=== PATIENT | female | born 1945 | race Caucasian/White ===

== ENCOUNTER → 2017-07-25 09:50 | Outpatient (CLI) | payer MEDICARE, SELFPAY ==
--- NOTE | 2017-07-25 09:56 | MM_ITS ---
MM Dig screening mamm BI w/CAD CAD Screening COMPARISON: Digital mammograms 06/14/2015 and 07/22/2016 INDICATION: There is a history of breast cancer in patient's mother diagnosed after menopause in patient's sister diagnosed after menopause. There is been previous biopsy left breast. TECHNIQUE: Standard CC and MLO images were obtained. R2 CAD reviewed. FINDINGS: There is a markedly and diffusely dense and heterogenic parenchymal pattern lessening the sensitivity of mammography. Numerous benign-appearing calcification is again seen in each breast. There are 2 large benign-appearing calcination is right breast likely with in calcified fibroadenomas these are stable. There is no new or suspicious lesion in either breast and there are no suspicious microcalcifications. There is arterial calcification in each breast. IMPRESSION: Stable exam with markedly dense parenchymal pattern and no suspicious lesion seen BI-RADS Category: 2 Benign Finding(s) RECOMMENDED FOLLOW-UP: 1YR - 1 YEAR FOLLOW-UP (A letter has been sent to the patient regarding results of the study.)
== END ==
PROVIDERS: PCP Internal Medicine; Visit Provider Internal Medicine
DX: Z12.31 Encounter for screening mammogram for malignant neoplasm of breast (principal)
CPT/HCPCS: 77067

== ENCOUNTER → 2017-12-17 15:08 | Outpatient (CLI) | payer MEDICARE, SELFPAY ==
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
== END ==
PROVIDERS: PCP Internal Medicine; Visit Provider Internal Medicine
DX: M79.605 Pain in left leg (principal); M79.604 Pain in right leg; M79.89 Other specified soft tissue disorders
CPT/HCPCS: 93970

== ENCOUNTER → 2018-02-11 12:51 | Outpatient (POV) | payer MEDICARE, SELFPAY | PROVIDERS: PCP Internal Medicine | DX: Z00.00 Encounter for general adult medical examination without abnormal findings (principal) ==

== ENCOUNTER → 2018-07-15 14:01 | Outpatient (POV) | payer MEDICARE, SELFPAY | DX: Z00.00 Encounter for general adult medical examination without abnormal findings (principal) ==

== ENCOUNTER → 2018-12-30 12:49 | Outpatient (POV) | payer MEDICARE, SELFPAY | DX: Z00.00 Encounter for general adult medical examination without abnormal findings (principal) ==

== ENCOUNTER → 2019-01-20 07:54 | Outpatient (CLI) | payer MEDICARE, SELFPAY ==
--- NOTE | 2019-01-20 07:58 | CA_ITS ---
APPROVED REPORT Cardiology Nurse: ELMER Laterality: Bilateral Study Quality: Good Indications: Dizziness and Vertigo Risk Factors Hypertension: Hyperlipidemia Doppler Spectral Velocity Analysis ECA (R) 81.70/ cm/s ECA (L) 60.50/ cm/s dICA (R) 108.00/31.40 cm/s dICA (L) 83.30/17.30 cm/s Eduardo (R) 71.50/14.90 cm/s Eduardo (L) 80.90/21.40 cm/s pICA (R) 36.10/12.60 cm/s pICA (L) 84.90/22.00 cm/s dCCA (R) 29.90/10.20 cm/s dCCA (L) 46.40/10.20 cm/s pCCA (R) 59.70/12.60 cm/s pCCA (L) 63.60/11.80 cm/s Vert (R) 61.30/ cm/s Vert (L) 47.90/ cm/s ICA/CCA 1.80 ICA/CCA 1.30 Findings Duplex evaluation demonstrates stenosis of the right proximal internal carotid artery <20% with PSV <140 cm/sec, EDV <100 cm/sec, and IC/CC Ratio <4.0.Duplex evaluation demonstrates stenosis of the left proximal internal carotid artery <20% with PSV <140 cm/sec, EDV <100 cm/sec, and IC/CC Ratio <4.0.Antegrade flow seen bilateral vertebral arteries. Conclusion Duplex evaluation demonstrates stenosis of the right proximal internal carotid artery <20% with PSV <140 cm/sec, EDV <100 cm/sec, and IC/CC Ratio <4.0.Duplex evaluation demonstrates stenosis of the left proximal internal carotid artery <20% with PSV <140 cm/sec, EDV <100 cm/sec, and IC/CC Ratio <4.0.Antegrade flow seen bilateral vertebral arteries. Electronically signed by : Bean Vargas MD 01/20/2019 15:56:20
== END ==
PROVIDERS: PCP Internal Medicine; Visit Provider Internal Medicine
DX: R42 Dizziness and giddiness (principal); I10 Essential (primary) hypertension
CPT/HCPCS: 93880

== ENCOUNTER → 2019-01-27 15:07 | Outpatient (CLI) | payer MEDICARE, SELFPAY ==
--- NOTE | 2019-01-27 | XR_ITS ---
PROCEDURE: XR FOOT LT MIN 3V CLINICAL INDICATION: S/P FALL 01-21-19, PAIN LT CHEST,LT HIP, BILAT FEET AND ANKLES Pain following injury COMPARISON: No exams were available for comparison FINDINGS: There is an old fracture versus postsurgical change at the distal aspect of the 1st metatarsal. Suspect prior bunionectomy. There are mild degenerative changes of the midfoot with diffuse vascular calcification . no acute fracture or dislocation. Other findings:None. IMPRESSION: No acute finding Dictated by: Bean Vargas MD 01/27/2019 16:09 Electronically signed by Bean Vargas MD in [place] 01/27/2019 16:09
--- NOTE | 2019-01-27 | XR_ITS ---
PROCEDURE: XR ANKLE LT MIN 3V CLINICAL INDICATION: S/P FALL 01-21-19, PAIN LT CHEST,LT HIP, BILAT FEET AND ANKLES Fall with injury and pain COMPARISON: No exams were available for comparison FINDINGS: Generalized soft tissue swelling. Diffuse vascular calcification. No acute fracture or dislocation. Mild spurring at the calcaneal plantar surface. IMPRESSION: No acute finding Dictated by: Bean Vargas MD 01/27/2019 16:13 Electronically signed by Bean Vargas MD in [place] 01/27/2019 16:13
--- NOTE | 2019-01-27 | XR_ITS ---
PROCEDURE: XR ANKLE RT MIN 3V CLINICAL INDICATION: S/P FALL 01-21-19, PAIN LT CHEST,LT HIP, BILAT FEET AND ANKLES Fall with injury and pain COMPARISON: No exams were available for comparison FINDINGS: Generalized soft tissue swelling greater along the medial aspect. Diffuse vascular calcification. No acute fracture or dislocation IMPRESSION: Soft tissue swelling otherwise negative Dictated by: Bean Vargas MD 01/27/2019 16:14 Electronically signed by Bean Vargas MD in [place] 01/27/2019 16:14
--- NOTE | 2019-01-27 | XR_ITS ---
PROCEDURE: XR RIBS LT 2V CLINICAL INDICATION: S/P FALL 01-21-19, PAIN LT CHEST,LT HIP, BILAT FEET AND ANKLES Left-sided chest pain/rib pain following injury COMPARISON: CXR-PICC CHEST PORTABLE-PICC PLACEMENT from 10/30/2016 XR CHEST 2V from 01/27/2019 FINDINGS: PA and lateral views of the chest show cardiomegaly without failure. No evidence of pneumothorax. Lungs are clear of acute infiltrate. There is a small left pleural effusion with mild blunting of the left CP angle. Nondisplaced fracture is present involving the left 4th 5th and 6th ribs posterior laterally IMPRESSION: Cardiomegaly with small left effusion. Left 4th 5th and 6th rib fractures Dictated by: Bean Vargas MD 01/27/2019 16:05 Electronically signed by Bean Vargas MD in [place] 01/27/2019 16:07
--- NOTE | 2019-01-27 | XR_ITS ---
PROCEDURE: XR HIP LT 2-3V W/PELVIS CLINICAL INDICATION: S/P FALL 01-21-19, PAIN LT CHEST,LT HIP, BILAT FEET AND ANKLES Pelvic pain following injury COMPARISON: PELAP PELVIS AP ONLY from 10/29/2013 FINDINGS: No obvious fracture or dislocation. There are mild osteoarthritic changes of the hips with bony hypertrophy of the greater trochanter. There is generalized vascular calcification. No fracture or dislocation apparent IMPRESSION: Degenerative change, no acute finding Dictated by: Bean Vargas MD 01/27/2019 16:12 Electronically signed by Bean Vargas MD in [place] 01/27/2019 16:12
--- NOTE | 2019-01-27 | XR_ITS ---
PROCEDURE: XR FOOT RT MIN 3V CLINICAL INDICATION: S/P FALL 01-21-19, PAIN LT CHEST,LT HIP, BILAT FEET AND ANKLES Pain following injury COMPARISON: No exams were available for comparison FINDINGS: There are no previous exams made available for comparison Prior bunionectomy of the distal 1st metatarsal with prior fusion of the 1st metatarsal tarsal joint. Osteoarthritic changes are present at the tarsal metatarsal joint and in the midfoot. There is a small calcaneal spur and there is generalized vascular calcification. No obvious fracture. IMPRESSION: Chronic degenerative and postsurgical changes, no acute finding Dictated by: Bean Vargas MD 01/27/2019 16:11 Electronically signed by Bean Vargas MD in [place] 01/27/2019 16:11
== END ==
PROVIDERS: PCP Internal Medicine; Visit Provider Internal Medicine
DX: R07.89 Other chest pain (principal); M25.552 Pain in left hip; M79.672 Pain in left foot; M79.671 Pain in right foot; M25.572 Pain in left ankle and joints of left foot; M25.571 Pain in right ankle and joints of right foot
CPT/HCPCS: 71046; 71100; 73502; 73610; 73630

== ENCOUNTER → 2019-04-26 13:24 | Outpatient (CLI) | payer MEDICARE, SELFPAY ==
--- NOTE | 2019-04-26 13:27 | MR_ITS ---
PROCEDURE: MR LUMBAR SPINE WO CON CLINICAL INDICATION: LOW BACK PAIN Right-sided low back pain COMPARISON: EVAPORATOR/O MRI-L-SPINE W/O from 06/30/2014 TECHNIQUE: Standard multiplanar multiecho sequences are performed without contrast. 3-D MIP and myelographic images are also rendered and reviewed FINDINGS: There is normal alignment. The spinal cord ends at the L1 level. T11-T12: Mild degenerative disc disease. Minimal central disc protrusion T11-T12 without impingement. L1-L2: Mild degenerative disc disease. L2-L3: Minimal facet hypertrophic change with a small amount fluid in the facet joint on the right. L3-L4: Minimal bulging disc with mild facet ligamentum hypertrophy. L4-5: Mild bulging disc with facet ligamentum hypertrophy with moderate bilateral lateral recess narrowing and moderate to severe left foraminal narrowing and moderate right foraminal narrowing. L5-S1: Degenerate disc disease with mild bulging disc along with facet ligamentum hypertrophy with moderate bilateral foraminal narrowing No extruded herniated disc evident. T1 and T2 hyperintensity noted at the T12 and L1 vertebral bodies consistent with lipoma or lipid rich hemangioma IMPRESSION: 1. Mild multilevel degenerative changes with with degenerative disc disease, mild bulging disc, and facet ligamentum hypertrophy. Please see above for detailed description at each level. 2. No extruded herniated disc or bony canal stenosis. Dictated by: Bean Vargas MD 04/27/2019 14:14 Electronically signed by Bean Vargas MD in [place] 04/27/2019 14:14
== END ==
PROVIDERS: PCP Internal Medicine; Visit Provider Internal Medicine
DX: M54.5 Low back pain (principal)
CPT/HCPCS: 72148; 76376

== ENCOUNTER → 2019-05-10 13:57 | Outpatient (POV) | payer MEDICARE, SELFPAY ==
[2019-05-10 14:18] VITALS: BP 147/52; PULSE 55; RESP 18; O2SAT 98; BMI 32.8
--- NOTE | 2019-05-10 15:42 | XR_ITS ---
PROCEDURE: XR SACROILIAC JOINT BI MIN 3V CLINICAL INDICATION: LOW BACK PAIN COMPARISON: No exams were available for comparison FINDINGS: There is generalized mild osteopenia. There is fairly symmetric subchondral sclerotic changes involving both sacroiliac joints somewhat more diffuse on the right side. There are no areas of cortical erosions or destruction. There are pelvic and proximal thigh calcified plaques. Sacral foramina appear to be normal. There is severe loss of disc space height at L5-S1. IMPRESSION: No acute process. Degenerative changes bilateral sacroiliac joints as discussed. Osteopenia. L5-S1 chronic intervertebral osteochondrosis. Dictated by: Raul Way 05/10/2019 17:31 Electronically signed by Raul Way in [place] 05/10/2019 17:31
--- NOTE | 2019-05-12 13:07 | HMH.PMCON ---
Assessment and Plan (1) Degenerative disc disease Current visit: Yes Status: Chronic Qualifiers: Spinal region: lumbar Qualified Code(s): M51.36 - Other intervertebral disc degeneration, lumbar region Category: Medical (2) Facet arthropathy Current visit: Yes Status: Chronic Category: Medical Code(s): M47.819 - Spondylosis without myelopathy or radiculopathy, site unspecified (3) Spinal stenosis Current visit: Yes Status: Chronic Category: Medical Code(s): M48.00 - Spinal stenosis, site unspecified (4) Sacroiliitis Current visit: Yes Status: Chronic Category: Medical Code(s): M46.1 - Sacroiliitis, not elsewhere classified - Assessment and plan all Dx Assessment and Plan for all problems:: We will get some imaging of her bilateral SI joints. We will set her up for bilateral SI joint injections. I will follow-up with her after this reassess her symptoms at that time she is been instructed to call the office if she has any issues prior to her next appointment. Dr. Block has reviewed this note and agrees with this plan of care. This note was dictated using voice recognition software and may contain errors or omissions HPI - Data of Consult Consult date: 05/10/19 Requesting Physician: Ayanna Fields APRN Primary Care Provider: Andrea Benton - Consult Narrative Reason for consult: Back pain History of present illness: Ms. Mckinnon is a 73 year old female who presents today for consultation in regards to her back pain. Patient has been going to pain management in [facility] getting epidural injections along with ablations and facet joint injections. She is also on tramadol and gabapentin. She states that that is somewhat beneficial. Patient would like to start doing her injective therapy at this point in [place]. Patient states that she feels that her pain is actually lower than the pain that the facet joint injections and epidurals were treating. Patient does have a positive Dann test SI joint compression test and Souleymane's test bilaterally. We will get some diagnostic imaging of her bilateral SI joints. I do believe that would be beneficial for a baseline. Patient has not had SI joint injections in the past. She rates her pain today a 4 out of 10. She is tried and failed multiple injections, RFA's, physical therapy CC: Ayanna Fields APRN [facility] History I have reviewed the patient's past medical history: Yes Medical History: Reports:: Diabetes Mellitus Type 2, Palpitations Denies:: Cancer, Diabetes Mellitus Type 1, MRSA *Have you ever received a pneumonia vaccine?: Yes *Have you received a flu vaccine this season?: Yes Other Medical History: Reports: Arthritis Other Surgeries: Yes: Hernia Repair Amputation: No Fractures: No - *Social History Smoking Status: Never smoker Alcohol Intake: never *Occupational Status:: other Housing: house *Travel in the last 8 weeks: None Family Hx:: Unable to obtain Review of Systems - Review of Systems ROS General: no recent weight change, no fever, no sleep disturbances Respiratory: no cough, no shortness of air, no recurring pulmonary infections Cardiovascular/Peripheral Vascular: No chest pain, No palpitations, no edema, no shortness of breath. Gastrointestinal: no new onset incontinence, normal bowel movements reported Genitourinary: no new onset incontinence Musculoskeletal: Back pain, leg pain Psychiatric: normal mood/ affect, Neurological: [denies new onset weakness in extremities], [denies new onset balance issues] Meds Home Medications Medication Instructions Recorded Confirmed Type Alendronate Sodium 35 mg PO DAILY 05/10/19 05/10/19 History Donepezil HCl [Donepezil ODT 5mg] 5 mg PO DAILY 05/10/19 05/10/19 History Gabapentin [Gabapentin 100mg Cap] 100 mg PO BID 05/10/19 05/10/19 History Sertraline HCl 25 mg PO DAILY 05/10/19 05/10/19 History Tramadol HCl [Tramadol 50mg 50 mg PO DAILY 1
== END ==
PROVIDERS: PCP Internal Medicine; Visit Provider Clinical Nurse Specialist Family Health
DX: M51.36 Other intervertebral disc degeneration, lumbar region (principal); M47.819 Spondylosis without myelopathy or radiculopathy, site unspecified; M48.00 Spinal stenosis, site unspecified; M46.1 Sacroiliitis, not elsewhere classified
CPT/HCPCS: 72202; 99202

== ENCOUNTER → 2019-06-15 11:13 | Outpatient (POV) | payer MEDICARE, SELFPAY ==
[2019-06-15 11:44] VITALS: BP 162/61; PULSE 52; RESP 18; O2SAT 99; BMI 31.4
--- NOTE | 2019-06-15 12:36 | HMH.PAINSOAP ---
[facility] Pain Management SOAP Note Subjective:: Patient is a pleasant 73-year-old white female who presents today for follow-up after SI joint injections. Patient overall doing extremely well she denies any pain today. She is had over 90% relief of her symptomology. Patient is interested in repeating this and a possible ablation in the future. Patient and I also briefly discussed neuro stimulation however she is unsure if she would likes anything implanted in her skin. I did give her information in regards to this. ROS General: no recent weight change, no fever, no sleep disturbances Respiratory: no cough, no shortness of air, no recurring pulmonary infections Cardiovascular/Peripheral Vascular: No chest pain, No palpitations, no edema, no shortness of breath. Gastrointestinal: no new onset incontinence, normal bowel movements reported Genitourinary: no new onset incontinence Musculoskeletal: Back pain, SI joint pain Psychiatric: normal mood/ affect Neurological: [denies new onset weakness in extremities], [denies new onset balance issues] Objective:: Physical Exam General: Alert and oriented x3, no acute distress, pleasant and cooperative, [on room air] Lungs: Resps E/U, Symmetrical chest expansion, Eyes: PERRL Musculoskeletal: Flexion and extension of lumbar spine somewhat guarded secondary to pain, deep tendon reflexes normal, strength in upper and lower extremities [5/5], abnormal gait noted, positive Dann test positive SI joint compression test and positive Souleymane's test bilaterally Neurological: speech clear, implementation engineer equal, no gross sensory deficits Assessment:: Sacroiliitis Plan:: We will repeat her bilateral SI joint injections given the efficacy of the last when she may be a candidate for a neurotomy. I will follow-up with the patient after this reassess her symptoms at that time she is been instructed to call the office if she has any issues prior to her next appointment. Dr. Block has reviewed this note and agrees with this plan of care. This note was dictated using voice recognition software and may contain errors or omissions [facility] History I have reviewed the patient's past medical history: Yes Medical History: Reports:: Diabetes Mellitus Type 2, Palpitations Denies:: Cancer, Diabetes Mellitus Type 1, MRSA, Seizures *Have you ever received a pneumonia vaccine?: Yes *Have you received a flu vaccine this season?: Yes Other Medical History: Reports: Arthritis Other Surgeries: Yes: Hernia Repair Amputation: No Fractures: No - *Social History Smoking Status: Never smoker Alcohol Intake: never *Occupational Status:: other Housing: house *Travel in the last 8 weeks: None Family Hx:: Unable to obtain
== END ==
PROVIDERS: PCP Internal Medicine; Visit Provider Clinical Nurse Specialist Family Health
DX: M46.1 Sacroiliitis, not elsewhere classified (principal); M19.90 Unspecified osteoarthritis, unspecified site; E11.9 Type 2 diabetes mellitus without complications; R00.2 Palpitations
CPT/HCPCS: 99212

== ENCOUNTER → 2019-07-07 12:46 | Outpatient (POV) | payer MEDICARE, SELFPAY | PROVIDERS: PCP Family Medicine | DX: Z00.00 Encounter for general adult medical examination without abnormal findings (principal) ==

== ENCOUNTER → 2019-07-12 14:52 | Outpatient (POV) | payer MEDICARE, SELFPAY ==
[2019-07-12 15:23] VITALS: BP 134/57; PULSE 52; RESP 18; O2SAT 98; BMI 31.4
--- NOTE | 2019-07-13 09:10 | HMH.PAINSOAP ---
[facility] Pain Management SOAP Note Subjective:: Patient is a pleasant 73-year-old white female who presents today for follow-up after bilateral SI joint injections. Patient states she is doing well she has no pain today. Overall doing well and more active. Patient would like to follow-up in a few months just to ensure she still doing all right. ROS General: no recent weight change, no fever, no sleep disturbances Respiratory: no cough, no shortness of air, no recurring pulmonary infections Cardiovascular/Peripheral Vascular: No chest pain, No palpitations, no edema, no shortness of breath. Gastrointestinal: no new onset incontinence, normal bowel movements reported Genitourinary: no new onset incontinence Musculoskeletal: Back and hip pain at times Psychiatric: normal mood/ affect, Neurological: [denies new onset weakness in extremities], [denies new onset balance issues] Objective:: Physical Exam General: Alert and oriented x3, no acute distress, pleasant and cooperative, [on room air] Lungs: Resps E/U, Symmetrical chest expansion, Eyes: PERRL Musculoskeletal: Flexion and extension of lumbar spine somewhat guarded secondary to pain, deep tendon reflexes normal, strength in upper and lower extremities [5/5], [abnormal gait noted] Neurological: speech clear, electric serviceman equal, no gross sensory deficits Assessment:: Degenerative disc disease lumbar spine lumbar radiculopathy along with sacroiliitis Plan:: We will follow-up with the patient in 2 months reassess her symptoms at that time she has been instructed to call the office if she has any issues prior to her next appointment. Dr. Block has reviewed this note and agrees with this plan of care. This note was dictated using voice recognition software and may contain errors or omissions [facility] History I have reviewed the patient's past medical history: Yes Medical History: Reports:: Atrial Fibrillation, Diabetes Mellitus Type 2, Palpitations Denies:: Cancer, Diabetes Mellitus Type 1, MRSA, Seizures *Have you ever received a pneumonia vaccine?: Yes *Have you received a flu vaccine this season?: Yes Other Medical History: Reports: Arthritis. Denies: Blood Transfusion Reaction Other Surgeries: Yes: Hernia Repair Amputation: No Fractures: No - *Social History Smoking Status: Never smoker Alcohol Intake: never *Occupational Status:: other Housing: house *Travel in the last 8 weeks: None Family Hx:: Unable to obtain
== END ==
PROVIDERS: PCP Internal Medicine; Visit Provider Clinical Nurse Specialist Family Health
DX: M51.16 Intervertebral disc disorders with radiculopathy, lumbar region (principal); M46.1 Sacroiliitis, not elsewhere classified
CPT/HCPCS: 99212

== ENCOUNTER → 2019-08-25 08:27 | Outpatient (CLI) | payer MEDICARE, SELFPAY ==
--- NOTE | 2019-08-25 08:28 | MR_ITS ---
PROCEDURE: MR HEAD/BRAIN WO/W CON CLINICAL INDICATION: intracranial circulation Ringing in the ears, dizziness, increasing dizziness COMPARISON: No exams were available for comparison TECHNIQUE: Routine multiplanar multi echo sequences are performed without and with gadolinium enhancement. FINDINGS: No midline shift, mass effect, intracranial hemorrhage, or hydrocephalus is evident. There is generalized atrophy with scattered periventricular subcortical and basal ganglia T2 hyperintensities consistent with ischemic gliotic change from microvascular disease. There is no evidence of acute infarction. No enhancing lesions are evident. The cerebellopontine angles, cerebellum, and brainstem are unremarkable. The pituitary and optic chiasm have an unremarkable appearance. Unremarkable craniocervical junction. No mastoid effusion or sinus air-fluid level. IMPRESSION: 1. Generalized atrophy with periventricular ischemic gliotic change. 2. No acute intracranial findings. Dictated by: Bean Vargas MD 08/26/2019 11:48 Electronically signed by Bean Vargas MD in [place] 08/26/2019 11:48
--- NOTE | 2019-08-25 08:28 | MR_ITS ---
PROCEDURE: MR ANGIO HEAD WO CON CLINICAL INDICATION: intracranial circulation Ringing in ears with dizziness which is increasing, increasing falls COMPARISON: No exams were available for comparison TECHNIQUE: 3D [id number] images performed without contrast with MIP multi slab reformats FINDINGS: There is a question of a small anterior communicating artery aneurysm measuring approximately 2 mm. This could be due to ectasias of the anterior communicating artery with overlap. CT angiogram may provide further evaluation no other aneurysms are evident. No major intracranial occlusive process or arteriovenous malformation evident. Single-shot venogram shows no evidence of superior sagittal sinus thrombosis. 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 Consider CT angiogram for confirmation. Dictated by: Bean Vargas MD 08/26/2019 11:52 Electronically signed by Bean Vargas MD in [place] 08/26/2019 11:52
== END ==
PROVIDERS: PCP Internal Medicine; Visit Provider Specialist
DX: G47.33 Obstructive sleep apnea (adult) (pediatric) (principal); H02.403 Unspecified ptosis of bilateral eyelids; H53.2 Diplopia; H93.19 Tinnitus, unspecified ear; R42 Dizziness and giddiness; R53.83 Other fatigue
CPT/HCPCS: 70544; 70553; A9576

== ENCOUNTER → 2019-09-06 08:26 | Outpatient (CLI) | payer MEDICARE, SELFPAY ==
[2019-09-06 08:52] LABS: Anion Gap 9.6 mEq/L (5-15); Blood Urea Nitrogen 38 mg/dl (7-17); Calcium 9.8 mg/dl (8.4-10.2); Carbon Dioxide 29 mmol/L (22.0-30.0); Chloride 107 mmol/L (98-107); Estimated Glomerular Filt Rate 23 ml/min (>60); GFR (African American) 28 ML/MIN (>60); Glucose 70 mg/dl (74-100); Potassium 4.6 mmoL/L (3.5-5.1); Sodium 141 mmol/L (136-145)
== END ==
PROVIDERS: PCP Internal Medicine; Visit Provider Specialist
DX: I67.1 Cerebral aneurysm, nonruptured (principal); I99.8 Other disorder of circulatory system; R42 Dizziness and giddiness
CPT/HCPCS: 36415; 80048

== ENCOUNTER → 2019-09-06 13:30 | Outpatient (POV) | payer MEDICARE, SELFPAY ==
[2019-09-06 13:49] VITALS: BP 170/70; PULSE 50; RESP 18; TEMP 36.6; O2SAT 98; BMI 32.5
--- NOTE | 2019-09-06 13:55 | HMH.PAINSOAP ---
[facility] Pain Management SOAP Note Subjective:: Patient is a pleasant 74-year-old white female who presents today for follow-up. Patient is doing extremely well after bilateral SI joint injections. She rates her pain a 0 out of 10 today however she states that with activity her pain begins to return. She does have a positive Gypsy's test [place]'s test and [place]'s test bilaterally. She would like to move forward with bilateral SI joint injections. ROS General: no recent weight change, no fever, no sleep disturbances Respiratory: no cough, no shortness of air, no recurring pulmonary infections Cardiovascular/Peripheral Vascular: No chest pain, No palpitations, no edema, no shortness of breath. Gastrointestinal: no new onset incontinence, normal bowel movements reported Genitourinary: no new onset incontinence Musculoskeletal: SI joint pain Psychiatric: normal mood/ affect, Neurological: [denies new onset weakness in extremities], [denies new onset balance issues] Objective:: Physical Exam General: Alert and oriented x3, no acute distress, pleasant and cooperative, [on room air] Lungs: Resps E/U, Symmetrical chest expansion, Eyes: PERRL Musculoskeletal: Flexion and extension of lumbar spine somewhat guarded secondary to pain, deep tendon reflexes normal, strength in upper and lower extremities [5/5], [abnormal gait noted] Neurological: speech clear, field reimbursement manager equal, no gross sensory deficits Assessment:: Sacroiliitis Plan:: We will move forward with bilateral SI joint injections given the efficacy of this in the past I do believe it would benefit her. She is been instructed to call the office if she has any issues prior to her next appointment. We specifically discussed risk factors for Covid-19 including age, heart or lung disease, diabetes, immunosuppression and travel. We also discussed that NSAIDs may worsen Covid-19 infection symptoms and that they should not be used to treat Covid-19 symptoms. Patient was also informed that corticosteroids in any form oral or injectable will decrease immune response and may increase risk of Covid-[address] Block has reviewed this patient's chart and this note and agrees with plan of care. Patient has been instructed to call the office if they have any issues prior to the next appointment. [facility] History I have reviewed the patient's past medical history: Yes Medical History: Reports:: Asthma, Atrial Fibrillation, Diabetes Mellitus Type 2, Gastroesophageal Reflux Disease(GERD), Hiatal Hernia, Hypertension, Palpitations Denies:: Cancer, Diabetes Mellitus Type 1, MRSA, Seizures *Have you ever received a pneumonia vaccine?: Yes *Have you received a flu vaccine this season?: Yes Other Medical History: Reports: Arthritis, Cataracts, Other. Denies: Blood Transfusion Reaction Other Surgeries: Yes: Hernia Repair, Other Amputation: No Fractures: No - *Social History Smoking Status: Never smoker Alcohol Intake: never *Occupational Status:: other Housing: house *Travel in the last 8 weeks: None Family Hx:: Unable to obtain
== END ==
PROVIDERS: PCP Internal Medicine; Visit Provider Clinical Nurse Specialist Family Health
DX: M46.1 Sacroiliitis, not elsewhere classified (principal)
CPT/HCPCS: 36415; 80048; 99212

== ENCOUNTER 2019-10-08 13:17 | Day surgery (SDC) | payer MEDICARE, SELFPAY ==
[2019-10-08 13:23] VITALS: BP 177/68; PULSE 56; RESP 18; TEMP 36.5; O2SAT 95; BMI 32.8
--- NOTE | 2019-10-08 13:37 | HMH.PMPROC ---
- Procedure Date: 10/08/19 Time: 13:37 Anesthesiologist:: Jonn Block MD Complications:: None Pre-procedure Diagnosis:: Sacroiliitis Post-procedure Diagnosis:: Same Indications for Procedure:: This patient is a pleasant 74-year-old white female who we are treating for bilateral hip pain. She has pain over both SI joints. She is tender over both SI joints. She has a positive SI joint compression test. She has a positive Gypsy's test bilaterally. She has positive Dann test bilaterally. We will do bilateral SI joint injections today to see if this will help with her pain symptoms. Procedure Details:: B/L SI joint injection under fluoroscopy Informed consent was obtained and the risks and benefits of the procedure was explained to the patient. The patient was taken to the procedure room and placed prone on the procedure table. The patient was prepped using ChloraPrep. The skin and subcutaneous tissues overlying the SI joints were anesthetized using lidocaine. I placed a 22-gauge needle first in the left SI joint and second in the right SI joint. Needle placement was confirmed with dye. After this we injected 5 mL bupivacaine 0.25% and Depo-Medrol 40 mg into each SI joint. Patient tolerated the procedure well with no complication. Plan and Disposition:: We will follow-up with her in 2 weeks. Will reevaluate symptoms at that time.
[2019-10-08 13:40] VITALS: BP 152/78; PULSE 84; RESP 18; O2SAT 98
[2019-10-08 13:41] VITALS: BP 148/89; PULSE 89; RESP 18; O2SAT 99
[2019-10-08 13:54] VITALS: BP 174/54; PULSE 52; RESP 20; O2SAT 95
== END 2019-10-08 13:55 | disposition home or self-care (01) ==
LOC: SC.PAINP 13:18
PROVIDERS: PCP Internal Medicine; Visit Provider Anesthesiology
DX: M46.1 Sacroiliitis, not elsewhere classified (principal); I10 Essential (primary) hypertension; J45.909 Unspecified asthma, uncomplicated; E11.9 Type 2 diabetes mellitus without complications; I48.91 Unspecified atrial fibrillation; K21.9 Gastro-esophageal reflux disease without esophagitis; M19.90 Unspecified osteoarthritis, unspecified site
CPT/HCPCS: 27096; G0260; J1030; Q9966

== ENCOUNTER → 2019-10-25 13:56 | Outpatient (POV) | payer MEDICARE, SELFPAY ==
[2019-10-25 14:33] VITALS: BP 149/58; PULSE 60; RESP 18; O2SAT 99; BMI 32.4
--- NOTE | 2019-10-25 14:39 | HMH.PAINSOAP ---
[facility] Pain Management SOAP Note Subjective:: Pleasant 74-year-old white female who presents today for follow-up after bilateral SI joint injection. Patient states it helped her symptoms by 90% she rates her pain a 0 out of 10 today. Patient gets several months relief with her injections. We discussed potential RFA of the SI joint or corner lock procedure. She would like to repeat the injection she is having some health concerns at this time is having test run. ROS General: no recent weight change, no fever, no sleep disturbances Respiratory: no cough, no shortness of air, no recurring pulmonary infections Cardiovascular/Peripheral Vascular: No chest pain, No palpitations, no edema, no shortness of breath. Gastrointestinal: no new onset incontinence, normal bowel movements reported Genitourinary: no new onset incontinence Musculoskeletal: SI joint pain Psychiatric: normal mood/ affect Neurological: [denies new onset weakness in extremities], [denies new onset balance issues] Objective:: Physical Exam General: Alert and oriented x3, no acute distress, pleasant and cooperative, [on room air] Lungs: Resps E/U, Symmetrical chest expansion, Eyes: PERRL Musculoskeletal: Flexion and extension of lumbar spine somewhat guarded secondary to pain, deep tendon reflexes normal, strength in upper and lower extremities [5/5], [abnormal gait noted] Neurological: speech clear, housekeeping assistant equal, no gross sensory deficits Assessment:: Sacroiliitis Plan:: We will schedule bilateral SI joint injections with the patient in a month. She has been instructed to call the office if she has any issues prior to her next appointment. Patient and I also discussed a RFA of her SI joints or potentially a coronary lock procedure. We will follow-up with her after this reassess her symptoms at that time she has been instructed call the office if she has any issues prior to her next appointment. Dr. Block has reviewed this note and agrees with this plan of care. This note was dictated using voice recognition software and may contain errors or omissions [facility] History I have reviewed the patient's past medical history: Yes Medical History: Reports:: Asthma, Atrial Fibrillation, Diabetes Mellitus Type 1, Diabetes Mellitus Type 2, Gastroesophageal Reflux Disease(GERD), Hiatal Hernia, Hypertension, Palpitations Denies:: Cancer, MRSA, Seizures *Have you ever received a pneumonia vaccine?: Yes *Have you received a flu vaccine this season?: Yes Other Medical History: Reports: Anemia, Arthritis, Cataracts, Other. Denies: Blood Transfusion Reaction Other Surgeries: Yes: Hernia Repair, Other Amputation: No Fractures: No - *Social History Smoking Status: Never smoker Alcohol Intake: never *Occupational Status:: other Housing: house *Travel in the last 8 weeks: None Family Hx:: Unable to obtain
== END ==
PROVIDERS: PCP Internal Medicine; Visit Provider Clinical Nurse Specialist Family Health
DX: Z09 Encounter for follow-up examination after completed treatment for conditions other than malignant neoplasm (principal); M46.1 Sacroiliitis, not elsewhere classified
CPT/HCPCS: 99212

== ENCOUNTER → 2019-10-29 08:09 | Outpatient (CLI) | payer MEDICARE, SELFPAY ==
--- NOTE | 2019-10-29 08:14 | US_ITS ---
PROCEDURE: US KIDNEY CLINICAL INDICATION: Chronic kidney disease COMPARISON: No exams were available for comparison FINDINGS: The right kidney is [id number]. No hydronephrosis, or renal mass or perinephric fluid collection is evident. The left kidney is [id number]. No hydronephrosis, or renal mass or perinephric fluid collection is evident. There is mild bilateral renal cortical thinning IMPRESSION: Mild cortical thinning otherwise unremarkable bilateral renal ultrasound Dictated by: Bean Vargas MD 10/29/2019 16:39 Electronically signed by Bean Vargas MD in [place] 10/29/2019 16:39
--- NOTE | 2019-10-29 08:14 | US_ITS ---
PROCEDURE: US URINARY BLADDER CLINICAL INDICATION: ELEVATED KIDNEY FUNCTION,CKD COMPARISON: No exams were available for comparison FINDINGS: Urinary bladder has an unremarkable appearance. Ureteral jets are noted as expected. Full bladder volume is approximately 160 mL. Postvoid volume calculated to be 22 mL. IMPRESSION: Unremarkable appearing urinary bladder with mild postvoid residual of 22 mL Dictated by: Bean Vargas MD 10/29/2019 16:40 Electronically signed by Bean Vargas MD in [place] 10/29/2019 16:40
== END ==
PROVIDERS: PCP Internal Medicine; Visit Provider Internal Medicine
DX: R94.4 Abnormal results of kidney function studies (principal); N18.9 Chronic kidney disease, unspecified
CPT/HCPCS: 76770; 76857

== ENCOUNTER → 2019-11-03 14:28 | Outpatient (CLI) | payer MEDICARE, SELFPAY ==
[2019-11-03 21:35] LABS: Collection Time,Urine 24 hours
[2019-11-03 21:36] LABS: Creatinine 24 Hour,Urine 725 mg/24hr (630-2500); Creatinine Clearance Urine 28.9 mL/min (25-115); Creatinine,Urine Random 50 mg/dL (Not Estab.); Patient Height,Urine 60 inches; Patient Weight,Urine 156 lbs; Total Volume,Urine 1450 mL (250-2400)
[2019-11-05 15:10] LABS: Total Protein 24 Hour,Urine 174 mg/24 hr (40-90); Total Volume,Urine 1450 mL (250-2400)
== END ==
PROVIDERS: Visit Provider Internal Medicine
DX: R94.4 Abnormal results of kidney function studies (principal)
CPT/HCPCS: 82570; 82575; 84155; 84156; 84166

== ENCOUNTER 2019-11-26 11:35 | Day surgery (SDC) | payer MEDICARE, SELFPAY ==
[2019-11-26 11:47] VITALS: BP 196/69; PULSE 53; RESP 18; TEMP 36.4; O2SAT 97; BMI 31.8
--- NOTE | 2019-11-26 12:09 | HMH.PMPROC ---
- Procedure Date: 11/26/19 Time: 12:10 Anesthesiologist:: Jonn Block MD Complications:: None Pre-procedure Diagnosis:: Sacroiliitis Post-procedure Diagnosis:: Same Indications for Procedure:: This patient is a pleasant 74-year-old white female who we are treating for bilateral hip pain. She is tender over both SI joints. She has positive SI joint compression test bilaterally. She has a positive Gypsy's test bilaterally. She has a positive Dann test bilaterally. She did well with previous bilateral SI joint injections with 90% relief in her pain symptoms for several weeks. Her pain is now starting to return. We will do repeat bilateral SI joint injections under fluoroscopy today. Procedure Details:: B/L SI joint injection under fluoroscopy Informed consent was obtained and the risks and benefits of the procedure was explained to the patient. The patient was taken to the procedure room and placed prone on the procedure table. The patient was prepped using ChloraPrep. The skin and subcutaneous tissues overlying the SI joints were anesthetized using lidocaine. I placed a 22-gauge needle first in the left SI joint and second in the right SI joint. Needle placement was confirmed with dye. After this we injected 5 mL bupivacaine 0.25% and Depo-Medrol 40 mg into each SI joint. Patient tolerated the procedure well with no complication. Plan and Disposition:: Follow-up with her and 2 weeks. Will reevaluate symptoms at that time. Because of health concerns she wants to hold off on the SI joint stabilization procedure.
[2019-11-26 12:17] VITALS: BP 125/85; BP 128/88; PULSE 85; PULSE 89; RESP 18; O2SAT 98
[2019-11-26 12:30] VITALS: BP 176/66; PULSE 50; RESP 18; O2SAT 95
== END 2019-11-26 12:31 | disposition home or self-care (01) ==
LOC: SC.PAINP 11:37
PROVIDERS: PCP Internal Medicine; Visit Provider Anesthesiology
DX: M46.1 Sacroiliitis, not elsewhere classified (principal); I10 Essential (primary) hypertension; I48.91 Unspecified atrial fibrillation; J45.909 Unspecified asthma, uncomplicated; N28.9 Disorder of kidney and ureter, unspecified; D64.9 Anemia, unspecified; M47.816 Spondylosis without myelopathy or radiculopathy, lumbar region; E11.9 Type 2 diabetes mellitus without complications; Z79.4 Long term (current) use of insulin; Z79.51 Long term (current) use of inhaled steroids; Z79.899 Other long term (current) drug therapy; F41.9 Anxiety disorder, unspecified
CPT/HCPCS: 27096; G0260; J1030; Q9966

== ENCOUNTER → 2019-11-29 08:41 | Outpatient (CLI) | payer MEDICARE, SELFPAY ==
--- NOTE | 2019-11-29 08:42 | MR_ITS ---
PROCEDURE: MR ANGIO HEAD WO CON CLINICAL INDICATION: eval for aneurysm,radiologist recommended Tinnitus in ears. Dizziness and blurred vision. Abnormal MRA 09/04/2019 Possible aneurysm the anterior communicating artery COMPARISON: MR ANGIO HEAD WO CON from 08/25/2019 TECHNIQUE: Routine multiplanar multi echo sequences are performed without gadolinium enhancement. FINDINGS: The previously noted protrusion in the region of the anterior communicating artery is less prominent on today's exam. There was a mild degree of motion artifact on that study which may have resulted in the appearance of a small NEYDA aneurysm. Today's study does not have any significant motion. There is no evidence of aneurysm, AVM, or other intracranial arterial anomaly. Static single-shot MRV is unremarkable. IMPRESSION: Negative MRA of the brain. No evidence of anterior communicating artery aneurysm Dictated by: Bean Vargas MD 11/30/2019 09:37 Electronically signed by Bean Vargas MD in [place] 11/30/2019 09:37
== END ==
PROVIDERS: PCP Internal Medicine; Visit Provider Specialist
DX: N18.9 Chronic kidney disease, unspecified (principal); R42 Dizziness and giddiness; R90.89 Other abnormal findings on diagnostic imaging of central nervous system
CPT/HCPCS: 70544

== ENCOUNTER → 2019-12-16 11:08 | Outpatient (POV) | payer MEDICARE, SELFPAY ==
[2019-12-16 11:55] VITALS: BP 173/77; PULSE 51; RESP 18; TEMP 36.8; O2SAT 98; BMI 31.6
--- NOTE | 2019-12-16 12:23 | HMH.PAINSOAP ---
[facility] Pain Management SOAP Note Subjective:: Patient is a 74-year-old white female who presents today for follow-up. She has been treated for chronic sacroiliitis. She recently underwent bilateral SI joint injections and got approximately 90% relief. She has had these injections in the past and has done well. She does report that she recently was told she had a possible aneurysm. She is following up with her provider with this. She also says that after having an MRA she now has some renal insufficiency. She is now following up with her urologist for this. Patient says that she would like to postpone any further injective therapy at this time due to her increased blood sugars and renal insufficiency. She and I did discuss possible SI stabilization procedure today. She was given educational information. She does rate her pain a 0 out of 10 today. Review of Systems General: No recent weight changes, no fever, no sleep disturbances Respiratory: No cough, no shortness of air, no recurring pulmonary infections Cardiovascular/peripheral vascular: No chest pain, no palpitations, no edema, no shortness of breath Gastrointestinal: No new onset incontinence, normal bowel movements reported Genitourinary: No new onset incontinence Musculoskeletal: Intermittent low back pain with radiation into bilateral buttocks Psychiatric: Normal mood/affect Neurological: [Denies weakness in extremities], [denies balance issues] Objective:: Physical exam General: Alert and oriented x3, no acute distress, pleasant and cooperative, [on room air] Lungs: Respirations even and unlabored, symmetrical chest expansion Eyes: PERRL Musculoskeletal: Flexion and extension of bar spine somewhat guarded secondary to pain, deep tendon reflexes normal, strength in upper and lower extremities [5/5], [abnormal gait noted], positive [place]'s test, positive Gypsy's test, positive distraction test Neurological: Speech clear, interior design project manager equal, no gross sensory deficit Assessment:: Low back pain, chronic sacroiliitis Plan:: Patient I had a long discussion concerning the SI stabilization procedure. She would like to follow-up with us in a month to discuss a further plan of care. She would like to also have her with her at the next visit so that we can discuss the SI stabilization. She will call the clinic if she has any concerns before next appointment. The patient and I specifically discussed risk factors for COVID19. These risks include, but are not limited to age greater than 60, heart or lung disease, diabetes, immunosuppression, and travel. We also discussed NSAIDs may worsen COVID19 infection or symptoms. Patient should not use NSAIDs to treat COVID19 signs or symptoms. Patient was also informed that any type of corticosteroid of any form (oral or injection) will decrease the patient's immune system response and may increase the likelihood of COVID19 infection [address] symptoms[address] Dr. Block has reviewed this note and agrees with this plan of care. This note was dictated using voice recognition software and make contain errors or omissions. [facility] History I have reviewed the patient's past medical history: Yes Medical History: Reports:: Anxiety, Asthma, Atrial Fibrillation, Diabetes Mellitus Type 1, Diabetes Mellitus Type 2, Gastroesophageal Reflux Disease(GERD), Hiatal Hernia, Hypertension, Palpitations Denies:: Cancer, MRSA, Seizures *Have you ever received a pneumonia vaccine?: Yes *Have you received a flu vaccine this season?: Yes Other Medical History: Reports: Anemia, Arthritis, Cataracts, Other. Denies: Blood Transfusion Reaction Other Surgeries: Yes: Hernia Repair, Other Amputation: No Fractures: No - *Social History Smoking Status: Never smoker Alcohol Intake: never *Occupational Status:: other Housing: house Household Members: spouse *Travel in the last 8 weeks: None - Psychiatric History Pschychiatric History:: Reports:: Anxiety Family Hx:: U
== END ==
PROVIDERS: Visit Provider Clinical Nurse Specialist Family Health
DX: M54.5 Low back pain (principal); M46.1 Sacroiliitis, not elsewhere classified
CPT/HCPCS: 99212

== ENCOUNTER → 2019-12-20 14:07 | Outpatient (CLI) | payer MEDICARE, SELFPAY ==
[2019-12-20 14:11] LABS: Microscopic, Urine URINE MICROSCOPIC (MICROSCOPIC)
[2019-12-20 14:35] LABS: Basophils # 0.1 K/mm3 (0-0.2); Basophils % 0.6 % (0.1-2.0); Eosinophils # 0.4 K/mm3 (0.0-0.4); Eosinophils % 3.6 % (0.1-12.0); Hematocrit 38.1 % (37.0-47.0); Hemoglobin 12.1 g/dL (12.2-16.2); Lymphocytes # 1.4 K/mm3 (0.7-4.5); Lymphocytes % 14.3 % (10-50); Mean Corpuscular HGB Conc 31.8 g/dL (31.8-35.4); Mean Corpuscular Hemoglobin 34.2 pg (27.0-31.2); Mean Corpuscular Volume 107.5 fl (81-99); Mean Platelet Volume 9.4 fl (7.4-10.4); Monocytes # 0.4 K/mm3 (0.1-1.0); Monocytes % 3.9 % (1.7-9.3); Neutrophils # 7.6 K/mm3 (1.8-7.8); Neutrophils % 77.6 % (37.0-80.0); Platelet Count 202 K/mm3 (142-424); Red Blood Count 3.54 M/mm3 (4.20-5.40); Red Cell Distribution Width 16.6 % (11.5-17.5); White Blood Count 9.8 K/mm3 (4.8-10.8)
[2019-12-20 14:37] LABS: Appearance,Urine CLEAR (Clear); Bilirubin,Urine Negative (Negative); Blood, Urine Negative (Negative); Color,Urine YELLOW (Yellow); Glucose,Urine (UA) Negative (Negative); Ketones,Urine Negative (Negative); Leukocyte Esterase,Urine 2+ (Negative); Nitrate,Urine Negative (Negative); PH,Urine 6.5 (5.0-8.5); Protein,Urine Negative (Negative); Specific Gravity, Urine 1.015 (1.005-1.030); Urobilinogen,Urine 0.2 EU/dl (0.2)
[2019-12-20 14:48] LABS: Creatinine,Urine Random 73 mg/dL (Not Estab.)
[2019-12-20 14:49] LABS: Bacteria,Urine 3+ /lpf; Squamous Epithelial Cell,Urine Occasional #/hpf (0-5)
[2019-12-20 15:08] LABS: 25-OH Vitamin D, Total 61.2 ng/mL (30-100)
[2019-12-20 16:17] LABS: Anion Gap 15.6 mEq/L (5-15); Blood Urea Nitrogen 36 mg/dl (7-17); Carbon Dioxide 29 mmol/L (22.0-30.0); Chloride 99 mmol/L (98-107); Estimated Glomerular Filt Rate 26 ml/min (>60); GFR (African American) 31 ML/MIN (>60); Glucose 224 mg/dl (74-100); Phosphorous 3.9 mg/dl (2.5-4.5); Potassium 4.6 mmoL/L (3.5-5.1); Sodium 139 mmol/L (136-145)
[2019-12-20 17:40] LABS: Intact Parathyroid Hormone 24.3 pg/mL (7.5-53.5)
== END ==
PROVIDERS: Visit Provider Internal Medicine Nephrology
DX: N18.3 Chronic kidney disease, stage 3 (moderate) (principal); R82.90 Unspecified abnormal findings in urine
CPT/HCPCS: 36415; 80069; 81001; 82306; 82570; 83970; 84155; 85025; 87086; 87088; 87186

== ENCOUNTER → 2020-01-17 11:12 | Outpatient (POV) | payer MEDICARE, SELFPAY ==
[2020-01-17 11:27] VITALS: BP 122/74; PULSE 74; RESP 18; O2SAT 98
--- NOTE | 2020-01-17 11:38 | HMH.PAINSOAP ---
[facility] Pain Management SOAP Note Subjective:: Pleasant 74-year-old white female who presents today for follow-up. She is being treated for chronic sacroiliitis. Her last bilateral SI joint injections were 2 months ago. Patient rates her pain a 0-10. She gets 80% relief with these injections for 3 months at a time. Patient states her only issue is increased blood sugar. We discussed decreasing her steroid. Patient did want to discuss a coronary lock procedure. However patient is having significant relief with her SI joint injections. I encouraged her to continue this until this begins to wean. ROS General: no recent weight change, no fever, no sleep disturbances Respiratory: no cough, no shortness of air, no recurring pulmonary infections Cardiovascular/Peripheral Vascular: No chest pain, No palpitations, no edema, no shortness of breath. Gastrointestinal: no new onset incontinence, normal bowel movements reported Genitourinary: no new onset incontinence Musculoskeletal: Back pain, SI joint pain Psychiatric: normal mood/ affect Neurological: [denies new onset weakness in extremities], [denies new onset balance issues] Objective:: Physical Exam General: Alert and oriented x3, no acute distress, pleasant and cooperative, [on room air] Lungs: Resps E/U, Symmetrical chest expansion, Eyes: PERRL Musculoskeletal: Flexion and extension of lumbar spine somewhat guarded secondary to pain, deep tendon reflexes normal, strength in upper and lower extremities [5/5], [abnormal gait noted] Neurological: speech clear, inspector integrated circuits equal, no gross sensory deficits Assessment:: Chronic sacroiliitis Plan:: We will continue with her SI joint injections. We will decrease her steroid during these times. I will follow-up with her after this reassess her symptoms at that time she has been instructed to call the office if she has any issues prior to her next appointment. Dr. Block has reviewed this note and agrees with this plan of care. This note was dictated using voice recognition software and may contain errors or omissions [facility] History I have reviewed the patient's past medical history: Yes Medical History: Reports:: Anxiety, Asthma, Atrial Fibrillation, Diabetes Mellitus Type 1, Diabetes Mellitus Type 2, Gastroesophageal Reflux Disease(GERD), Hiatal Hernia, Hypertension, Palpitations Denies:: Cancer, MRSA, Seizures *Have you ever received a pneumonia vaccine?: Yes *Have you received a flu vaccine this season?: Yes Other Medical History: Reports: Anemia, Arthritis, Cataracts, Other. Denies: Blood Transfusion Reaction Other Surgeries: Yes: Hernia Repair, Other Amputation: No Fractures: No - *Social History Smoking Status: Never smoker Alcohol Intake: never *Occupational Status:: other Housing: house Household Members: spouse *Travel in the last 8 weeks: None - Psychiatric History Pschychiatric History:: Reports:: Anxiety Family Hx:: Unable to obtain, Diabetes, Cancer, Coronary Artery Disease, Heart Attack
== END ==
PROVIDERS: PCP Internal Medicine; Visit Provider Clinical Nurse Specialist Family Health
DX: M46.1 Sacroiliitis, not elsewhere classified (principal)
CPT/HCPCS: 99212

== ENCOUNTER → 2020-02-09 13:11 | Outpatient (POV) | payer MEDICARE, SELFPAY | DX: Z00.00 Encounter for general adult medical examination without abnormal findings (principal) ==

== ENCOUNTER 2020-02-10 15:00 | Outpatient (RCR) | payer MEDICARE, SELFPAY ==
--- NOTE | 2019-12-13 15:02 | HMH.PTOPEV ---
PT Outpatient Evaluation Rehab PT Outpatient Evaluation Start: 12/13/19 14:00 Freq: Status: Active Protocol: Document 12/13/19 14:11 MARIA ELENAALEX (Rec: 12/13/19 15:02 STACI [id number]) Electronically Signed By Pawel King PT 12/13/19 14:11 Outpatient Therapy Subjective History Subjective History This is the initial Physical Therapy evaluation for Jody Mckinnon. Pt is a 74 y/o female referred to PT for c/o dizziness . Pt reports long history of vestibular issues being diagnosed w/ meinere's disease in 2010. Pt reports she began having dizziness after fall in 2011 where she hit her head, and began having tinnitus in in 2011 but significant increase 2016. Pt reports MRI and MRA of brain, no significant abnormalities in Brain. Pt reports she can be walking and just get light headed and has to stop until it clears up . Pt reports she has diabetic neuropathy in B feet. Chief Complaint Other Symptom Type Other Symptoms Aggravated By Bending/Stooping,Physical Activity Prior Functional Limitations Walking,Balance Current Functional Limitations Recreation Activity,Walking, Balance Balance Eval Subjective Hx of Complaint Comment dizziness Chief Complaint Did you feel dizzy, unsteady or faint? Yes Prior Functional Limitations Prior Functional [place] Level Pt has been modified independent using cane for ambulation but pt reports 4 falls in last 6 months Hx of Falls Hx Falls Yes Number in last 6 months 4 Gait/Posture Asssessment General Gait Observation Wide Based Gait Assistive Devices Straight Cane Level of Transfer Assist Standby Assistance Oculomotor Gaze Oculomotor Gaze Nml: Vergence Smooth Pursuit Saccades VOR Cancellation Cover/Uncover Cross Cover [place] Feet Together/Eyes open/Stable Surface pass Feet Together/Eyes Closed/Stable Surface pas
== END 2020-02-10 16:02 | disposition home or self-care (01) ==
LOC: PT 15:00
PROVIDERS: PCP Internal Medicine; Visit Provider Specialist
DX: R42 Dizziness and giddiness (principal)
CPT/HCPCS: 97110; 97112; 97163; 97164; 97530

== ENCOUNTER 2020-02-14 13:35 | Day surgery (SDC) | payer MEDICARE, SELFPAY ==
[2020-02-14 13:40] VITALS: BP 148/78; PULSE 50; RESP 19; TEMP 36.4; O2SAT 91; BMI 32.0
--- NOTE | 2020-02-14 13:55 | P.PCN_ITS ---
- Procedure Date: 02/14/20 Time: 13:55 Anesthesiologist:: Ayanna Fields APRN Complications:: None Pre-procedure Diagnosis:: Sacroiliitis Post-procedure Diagnosis:: Same Indications for Procedure:: Patient is pleasant 74-year-old white female who presents today for bilateral SI joint injections. She has a positive Dann test SI joint compression test and Gypsy's test. Patient has had injections in the past to get 80% relief for them up to 3 months. We will move forward with an injection today. Physical Exam General: Alert and oriented x3, no acute distress, pleasant and cooperative, [on room air] Lungs: Resps E/U, Symmetrical chest expansion, Eyes: PERRL Musculoskeletal: Flexion and extension of lumbar spine somewhat guarded secondary to pain, deep tendon reflexes normal, strength in upper and lower extremities [5/5], [abnormal gait noted] Neurological: speech clear, shoelace tipping machine operator equal, no gross sensory deficits Procedure Details:: Informed consent was obtained and the risks and benefits of the procedure were explained to the patient. Patient was taken to the procedure room. Patient was placed prone on the procedure table. The left hip was prepped using ChloraPrep as a cleansing solution. The skin and subcutaneous tissues were anesthetized using lidocaine. Using fluoroscopic guidance I placed a 22-gauge spinal needle into the inferior aspect of the left SI joint. After this I injected 5 mL bupivacaine 0.25% and Depo-Medrol 40 mg into the left SI joint. We then repeated this on the right. the patient tolerated the procedure well with no complication. Plan and Disposition:: We will see the patient back in several weeks reassess her symptoms at that time she has been instructed to call the office if she has any issues prior to her next appointment. Dr. Block has reviewed this note and agrees with this plan of care. This note was dictated using voice recognition software and may contain errors or omissions
[2020-02-14 14:05] VITALS: BP 132/78; PULSE 85; RESP 18
[2020-02-14 14:06] VITALS: BP 138/88; PULSE 89; RESP 18; O2SAT 98
[2020-02-14 14:30] VITALS: BP 146/55; PULSE 67; RESP 20; O2SAT 95
== END 2020-02-14 14:31 | disposition home or self-care (01) ==
LOC: SC.PAINP 13:36
PROVIDERS: PCP Internal Medicine; Visit Provider Anesthesiology
DX: M46.1 Sacroiliitis, not elsewhere classified (principal); I10 Essential (primary) hypertension; E78.5 Hyperlipidemia, unspecified; J45.909 Unspecified asthma, uncomplicated; N28.9 Disorder of kidney and ureter, unspecified; Z90.49 Acquired absence of other specified parts of digestive tract; Z79.899 Other long term (current) drug therapy; E11.9 Type 2 diabetes mellitus without complications; Z79.4 Long term (current) use of insulin; Z79.51 Long term (current) use of inhaled steroids
CPT/HCPCS: 27096; G0260; J1030; Q9966

== ENCOUNTER → 2020-03-06 11:09 | Outpatient (POV) | payer MEDICARE, SELFPAY ==
[2020-03-06 11:29] VITALS: BP 138/89; PULSE 74; RESP 18; O2SAT 97; BMI 21.8
--- NOTE | 2020-03-06 13:02 | P.CONS_ITS ---
[facility] Pain Management SOAP Note Subjective:: She is a pleasant 74-year-old white female who presents today for follow-up after bilateral SI joint injections patient has 80% relief of her symptomology she rates her pain a 2 out of 10. She typically gets 3 to 4 months relief of her symptoms. We discussed scheduling her at bilateral SI joint injection in several months. She like to move forward with this. ROS General: no recent weight change, no fever, no sleep disturbances Respiratory: no cough, no shortness of air, no recurring pulmonary infections Cardiovascular/Peripheral Vascular: No chest pain, No palpitations, no edema, no shortness of breath. Gastrointestinal: no new onset incontinence, normal bowel movements reported Genitourinary: no new onset incontinence Musculoskeletal: Bilateral SI joint pain Psychiatric: normal mood/ affect Neurological: [denies new onset weakness in extremities], [denies new onset balance issues] Objective:: Physical Exam General: Alert and oriented x3, no acute distress, pleasant and cooperative, Lungs: Resps E/U, Symmetrical chest expansion, Eyes: PERRL Musculoskeletal: Flexion and extension of lumbar spine somewhat guarded secondary to pain, deep tendon reflexes normal, strength in upper and lower extremities [5/5], antalgic gait noted Neurological: speech clear, rosin barrel filler equal, no gross sensory deficits Assessment:: Sacroiliitis Plan:: We will set the patient up remains for bilateral SI joint injections given the efficacy of this in the past. I do believe it would benefit her. She has been instructed to call the office if she has any issues prior to next appointment. Dr. Block has reviewed this note and agrees with this plan of care. This note was dictated using voice recognition software and may contain errors or omissions [facility] History I have reviewed the patient's past medical history: Yes Medical History: Reports:: Anxiety, Asthma, Atrial Fibrillation, Diabetes Mellitus Type 1, Gastroesophageal Reflux Disease(GERD), Hiatal Hernia, Hyperlipidemia, Hypertension, Palpitations Denies:: Cancer, Diabetes Mellitus Type 2, MRSA, Seizures *Have you ever received a pneumonia vaccine?: Yes *Have you received a flu vaccine this season?: Yes Other Medical History: Reports: Anemia, Arthritis, Cataracts, Other. Denies: Blood Transfusion Reaction Other Surgeries: Yes: Colostomy, Hernia Repair, Other (colectomy) Amputation: No Fractures: No - *Social History Smoking Status: Never smoker Alcohol Intake: never *Occupational Status:: other Housing: house Household Members: spouse *Travel in the last 8 weeks: None - Psychiatric History Pschychiatric History:: Reports:: Anxiety Family Hx:: Unable to obtain, Diabetes, Cancer, Coronary Artery Disease, Heart Attack
== END ==
PROVIDERS: PCP Internal Medicine Cardiovascular Disease; Visit Provider Clinical Nurse Specialist Family Health
DX: M46.1 Sacroiliitis, not elsewhere classified (principal)
CPT/HCPCS: 99212

== ENCOUNTER → 2020-03-20 16:04 | Outpatient (CLI) | payer MEDICARE, SELFPAY ==
[2020-03-20 16:09] LABS: Microscopic, Urine URINE MICROSCOPIC (MICROSCOPIC)
[2020-03-20 17:32] LABS: Basophils # 0.1 K/mm3 (0-0.2); Basophils % 0.8 % (0.1-2.0); Eosinophils # 0.2 K/mm3 (0.0-0.4); Hematocrit 41.3 % (37.0-47.0); Hemoglobin 12.7 g/dL (12.2-16.2); Lymphocytes # 2.2 K/mm3 (0.7-4.5); Lymphocytes % 20.4 % (10-50); Mean Corpuscular HGB Conc 30.8 g/dL (31.8-35.4); Mean Corpuscular Hemoglobin 34.1 pg (27.0-31.2); Mean Corpuscular Volume 110.9 fl (81-99); Mean Platelet Volume 9.3 fl (7.4-10.4); Monocytes # 0.4 K/mm3 (0.1-1.0); Monocytes % 3.8 % (1.7-9.3); Neutrophils # 7.7 K/mm3 (1.8-7.8); Neutrophils % 73.1 % (37.0-80.0); Platelet Count 229 K/mm3 (142-424); Red Blood Count 3.72 M/mm3 (4.20-5.40); Red Cell Distribution Width 16.4 % (11.5-17.5); White Blood Count 10.6 K/mm3 (4.8-10.8)
[2020-03-20 18:19] LABS: Chloride 101 mmol/L (98-107); Sodium 139 mmol/L (136-145)
[2020-03-20 18:20] LABS: Albumin Level 4.2 g/dl (3.5-5.0); Potassium 4.8 mmoL/L (3.5-5.1)
[2020-03-20 18:22] LABS: Blood Urea Nitrogen 35 mg/dl (7-17); Estimated Glomerular Filt Rate 29 ml/min (>60); GFR (African American) 35 ML/MIN (>60)
[2020-03-20 18:23] LABS: Anion Gap 14.8 mEq/L (5-15); Calcium 9.4 mg/dl (8.4-10.2); Carbon Dioxide 28 mmol/L (22.0-30.0); Glucose 303 mg/dl (74-100); Phosphorous 3.7 mg/dl (2.5-4.5)
[2020-03-20 18:30] LABS: Creatinine,Urine Random 18 mg/dL (Not Estab.)
[2020-03-20 20:14] LABS: Appearance,Urine CLEAR (Clear); Bilirubin,Urine Negative (Negative); Blood, Urine TRACE-I (Negative); Color,Urine YELLOW (Yellow); Glucose,Urine (UA) Negative (Negative); Ketones,Urine Negative (Negative); Leukocyte Esterase,Urine 2+ (Negative); Nitrate,Urine Negative (Negative); Protein,Urine Negative (Negative); Specific Gravity, Urine >= 1.030 (1.005-1.030); Urobilinogen,Urine 0.2 EU/dl (0.2)
[2020-03-20 20:54] LABS: Bacteria,Urine 2+ /lpf; RBC,Urine Occasional #/hpf (0-3)
== END ==
PROVIDERS: Visit Provider Internal Medicine Nephrology
DX: N18.30 Chronic kidney disease, stage 3 unspecified (principal); R82.90 Unspecified abnormal findings in urine
CPT/HCPCS: 36415; 80069; 81001; 82570; 84155; 85025; 87086; 87088; 87186

== ENCOUNTER → 2020-03-27 14:28 | Outpatient (POV) | payer MEDICARE, SELFPAY | PROVIDERS: Visit Provider Internal Medicine Nephrology | DX: Z00.00 Encounter for general adult medical examination without abnormal findings (principal) ==

== ENCOUNTER → 2020-04-25 13:03 | Outpatient (CLI) | payer MEDICARE, SELFPAY ==
--- NOTE | 2020-04-25 13:05 | XR_ITS ---
PROCEDURE: XR DEXA AXIAL SKELETON CLINICAL HISTORY: POST MENOPAUSAL COMPARISON: CR BONE3 BONE DENSITOMETRY(HIP:LT SPINE from 03/27/2016 FINDINGS: The right hip BMD is 0.673 with a T-score of -1.6. The left hip BMD is 0.786 with a T-score of -1.3. The lumbar spine BMD is 1.050 with a T-score of 0.0. Previously the lowest bone density was in the right femoral neck with T-score of -1.9 IMPRESSION: This patient is considered osteopenic according to the World Health Organization criteria. Bone density is between 10 and 25 percent below young normal. Fracture risk is moderate. Treatment is advised. Based on these results a follow-up exam is recommended in 2 year. Dictated by: Bean Vargas MD 04/25/2020 16:58 Bean Vargas MD in [place] 04/25/2020 16:58
== END ==
PROVIDERS: PCP Internal Medicine; Visit Provider Internal Medicine
DX: Z78.0 Asymptomatic menopausal state (principal)
CPT/HCPCS: 77080

== ENCOUNTER 2020-05-01 13:10 | Day surgery (SDC) | payer MEDICARE, SELFPAY ==
[2020-05-01 13:14] VITALS: BP 176/73; PULSE 47; RESP 18; TEMP 36.8; O2SAT 98; BMI 32.2
--- NOTE | 2020-05-01 13:36 | HMH.PMPROC ---
- Procedure Date: 05/01/20 Time: 13:53 Anesthesiologist:: Ayanna Fields APRN Complications:: None Pre-procedure Diagnosis:: Sacroiliitis Post-procedure Diagnosis:: Same Indications for Procedure:: Patient is a pleasant 74-year-old white female who presents today for bilateral SI joint injections. She gets good relief with her injections about 80%. Patient is interesting in moving forward with a corner lock procedure on the left side. Patient has had multiple successful SI joint injections. Patient is however not getting long-term relief. She has a positive Dann test SI joint compression test Gypsy's test and distraction test on the left side and right side. Procedure Details:: Informed consent was obtained and the risks and benefits of the procedure were explained to the patient. Patient was taken to the procedure room. Patient was placed prone on the procedure table. The [right] hip was prepped using ChloraPrep as a cleansing solution. The skin and subcutaneous tissues were anesthetized using lidocaine. Using fluoroscopic guidance I placed a 22-gauge spinal needle into the inferior aspect of the [right] SI joint. After this I injected 5 mL bupivacaine 0.25% and Depo-Medrol 40 mg into the [right] SI joint. This was then repeated on the left side. The patient tolerated the procedure well with no complication. Plan and Disposition:: We will set the patient up for a left-sided corner lock procedure in June. Per patient request. I will follow-up with her after this reassess her symptoms at that time she has been instructed to call the office if she has any issues prior to her next appointment. Dr. Block has reviewed this note and agrees with this plan of care. This note was dictated using voice recognition software and may contain errors or omissions
[2020-05-01 13:47] VITALS: BP 124/79; PULSE 74; RESP 18; O2SAT 98
[2020-05-01 13:48] VITALS: BP 128/88; PULSE 74; RESP 18; O2SAT 98
[2020-05-01 13:50] LABS: POC Glucose,Bedside 211 (70-110)
[2020-05-01 14:07] VITALS: BP 175/72; PULSE 53; RESP 20; O2SAT 98
== END 2020-05-01 14:08 | disposition home or self-care (01) ==
LOC: SC.PAINP 13:10
PROVIDERS: PCP Internal Medicine; Visit Provider Clinical Nurse Specialist Family Health
DX: M46.1 Sacroiliitis, not elsewhere classified (principal); E78.5 Hyperlipidemia, unspecified; I10 Essential (primary) hypertension; J45.909 Unspecified asthma, uncomplicated; K21.9 Gastro-esophageal reflux disease without esophagitis; N28.9 Disorder of kidney and ureter, unspecified; F41.9 Anxiety disorder, unspecified; F32.9 Major depressive disorder, single episode, unspecified; E11.9 Type 2 diabetes mellitus without complications; Z79.4 Long term (current) use of insulin; Z79.51 Long term (current) use of inhaled steroids; Z79.899 Other long term (current) drug therapy
CPT/HCPCS: 27096; 82962; G0260; J1030; Q9966

== ENCOUNTER → 2020-05-25 14:41 | Outpatient (POV) | payer MEDICARE, SELFPAY ==
[2020-05-25 15:52] VITALS: BP 142/78; PULSE 74; RESP 18; O2SAT 98; BMI 33.9
--- NOTE | 2020-05-25 15:52 | P.CONS_ITS ---
[facility] Pain Management SOAP Note Subjective:: Patient is a pleasant 74-year-old white female who presents today for follow-up after SI joint injection. Patient got 80% relief of her pain. She rates her pain at 0 out of 10 today. Patient is wanting to move forward with a left corner lock. Patient has been deemed a good candidate. She gets relief with her injections however it is not long-lasting. Patient has a positive Dann test Gypsy's test SI joint compression test and distraction test on the left side. I answered the patient's questions in regards to the procedure. Patient would like to move forward. Patient has had this pain for over a year and failed conservative therapies including anti-inflammatories, medications, inject ion therapy. ROS General: no recent weight change, no fever, no sleep disturbances Respiratory: no cough, no shortness of air, no recurring pulmonary infections Cardiovascular/Peripheral Vascular: No chest pain, No palpitations, no edema, no shortness of breath. Gastrointestinal: no new onset incontinence, normal bowel movements reported Genitourinary: no new onset incontinence Musculoskeletal: SI joint pain Psychiatric: normal mood/ affect Neurological: [denies new onset weakness in extremities], [denies new onset balance issues] Objective:: Physical Exam General: Alert and oriented x3, no acute distress, pleasant and cooperative, [on room air] Lungs: Resps E/U, Symmetrical chest expansion, Eyes: PERRL Musculoskeletal: Flexion and extension of lumbar spine somewhat guarded secondary to pain, deep tendon reflexes normal, strength in upper and lower extremities [5/5], [abnormal gait noted] Neurological: speech clear, telegraph and teletype operator equal, no gross sensory deficits Assessment:: Sacroiliitis Plan:: I we will schedule the patient for a left corner lock procedure. I discussed the procedure with the patient. I will follow-up with her afterwards reassess her symptoms at that time she has been instructed to call the office if she has any issues prior to her next appointment. Dr. Block has reviewed this note and agrees with this plan of care. This note was dictated using voice recognition software and may contain errors or omissions [facility] History I have reviewed the patient's past medical history: Yes Medical History: Reports:: Anxiety, Asthma, Atrial Fibrillation, Diabetes Mellitus Type 1, Gastroesophageal Reflux Disease(GERD), Hiatal Hernia, Hyperlipidemia, Hypertension, Palpitations Denies:: Cancer, Diabetes Mellitus Type 2, MRSA, Seizures *Have you ever received a pneumonia vaccine?: No *Have you received a flu vaccine this season?: No Other Medical History: Reports: Anemia, Arthritis, Cataracts, Other. Denies: Blood Transfusion Reaction Other Surgeries: Yes: Cardiac Catheterization, Colonoscopy, Colostomy, Hernia Repair, Other Amputation: No Fractures: No - *Social History Smoking Status: Never smoker Alcohol Intake: never Substance Use Type: denies use *Occupational Status:: retired Housing: house Household Members: spouse *Travel in the last 8 weeks: None - Psychiatric History Pschychiatric History:: Reports:: Anxiety Family Hx:: Unable to obtain, Diabetes, Cancer, Coronary Artery Disease, Heart A ttack
== END ==
PROVIDERS: PCP Internal Medicine; Visit Provider Clinical Nurse Specialist Family Health
DX: M46.1 Sacroiliitis, not elsewhere classified (principal)
CPT/HCPCS: 99212; G0463

== ENCOUNTER → 2020-06-14 15:41 | Outpatient (CLI) | payer MEDICARE, SELFPAY ==
[2020-06-14 17:03] LABS: Chloride 104 mmol/L (98-107); Sodium 140 mmol/L (136-145)
[2020-06-14 17:04] LABS: Potassium 5.3 mmoL/L (3.5-5.1)
[2020-06-14 17:06] LABS: Alanine Aminotransferase 11 U/L (12-78); Albumin Level 3.8 g/dl (3.5-5.0); Albumin/Globulin Ratio 1.4 (1.1-1.8); Alkaline Phosphatase 62 U/L (38-126); Anion Gap 10.3 mEq/L (5-15); Aspartate Amino Transferase 27 U/L (14-36); Bilirubin,Total 0.4 mg/dl (0.2-1.3); Blood Urea Nitrogen 37 mg/dl (7-17); Carbon Dioxide 31 mmol/L (22.0-30.0); Estimated Glomerular Filt Rate 31 ml/min (>60); GFR (African American) 38 ML/MIN (>60); Globulin 2.7 g/dL (1.3-3.2); Total Protein,Serum 6.5 g/dl (6.3-8.2)
[2020-06-14 17:07] LABS: Glucose 267 mg/dl (74-100)
[2020-06-14 17:50] LABS: Coronavirus 19 IgG Antibody Negative (Negative); Coronavirus 19 IgM Antibody Negative (Negative)
== END ==
PROVIDERS: Visit Provider Anesthesiology
DX: Z01.812 Encounter for preprocedural laboratory examination (principal); Z20.822 Contact with and (suspected) exposure to COVID-19; M46.1 Sacroiliitis, not elsewhere classified
CPT/HCPCS: 36415; 80053; 86328

== ENCOUNTER 2020-06-16 07:16 | Day surgery (SDC) | payer MEDICARE, SELFPAY ==
[2020-06-12 15:03] VITALS: BMI 31.6
[2020-06-14 21:47] LABS: Coronavirus 19 IgG Antibody Negative (Negative); Coronavirus 19 IgM Antibody Negative (Negative)
[2020-06-16] VITALS (12 sets, daily range): BP systolic 159–187; BP diastolic 53–95; PULSE 45–65; RESP 16–18; TEMP 36.1–36.6; O2SAT 93–100
[2020-06-16 08:06] LABS: POC Glucose,Bedside 83 (70-110)
--- NOTE | 2020-06-16 08:12 | SUR.PREOP ---
BLOOD DRAWN IN L A/C FOR CBC, LAB HERE TO CUSHION STUFFER. PT TOLERATED WELL.
[2020-06-16 08:23] LABS: Basophils # 0.1 K/mm3 (0-0.2); Basophils % 0.9 % (0.1-2.0); Eosinophils # 0.4 K/mm3 (0.0-0.4); Eosinophils % 4.3 % (0.1-12.0); Hematocrit 35.9 % (37.0-47.0); Hemoglobin 11.2 g/dL (12.2-16.2); Lymphocytes % 23.5 % (10-50); Mean Corpuscular HGB Conc 31.2 g/dL (31.8-35.4); Mean Corpuscular Hemoglobin 33.9 pg (27.0-31.2); Mean Corpuscular Volume 108.8 fl (81-99); Mean Platelet Volume 9.5 fl (7.4-10.4); Monocytes # 0.4 K/mm3 (0.1-1.0); Monocytes % 5.2 % (1.7-9.3); Neutrophils # 5.5 K/mm3 (1.8-7.8); Neutrophils % 66.1 % (37.0-80.0); Platelet Count 173 K/mm3 (142-424); Red Cell Distribution Width 16.5 % (11.5-17.5); White Blood Count 8.3 K/mm3 (4.8-10.8)
--- NOTE | 2020-06-16 08:45 | P.PN_ITS ---
[facility] Anesthesia Checklist - Patient Identification Patient Identification: Arm Band, Verbal (Name & ) - Structural Data Admitted From: Home Planned Operative Procedure/s: ileosacral fusion Consent for Planned Operative Procedure(s) Verified: Yes Verified Documents: History and Physical - NPO Status Verified Time NPO: 00:00 - Chart Verification Results Verified: CBC, BMP - Additional verifications Patient : No Anesthesia Reactions: No Hx Blood Transfusions: No Blood Transfusion Reaction: No Cephalosporin Allergy: No Previous Colonoscopy: No - Cardiovascular Assessment Heart Sounds: S1 & S2 Pulse Strength: Baseline Peripheral Edema: No - Airway Assessment C-Spine Mobility Assessed: Yes TMJ Mobility Assessed: Yes Dentition: Good Dentition - Neurological Assessment Level of Consciousness: Awake, Alert, Appropriate Hx Seizures: No Numbness or tingling in extremities: No - Anesthesia Plan Anesthesia Risk discussed: Yes Anesthesia Plan: Verified ASA Class: III Anesthesia Type: General [facility] History I have reviewed the patient's past medical history: Yes Medical History: Reports:: Anxiety, Asthma, Atrial Fibrillation, Diabetes Mellitus Type 1, Gastroesophageal Reflux Disease(GERD), Hiatal Hernia, Hyperlipidemia, Hypertension, Palpitations Denies:: Cancer, Diabetes Mellitus Type 2, MRSA, Seizures *Have you ever received a pneumonia vaccine?: Yes *Have you received a flu vaccine this season?: Yes Other Medical History: Reports: Anemia, Arthritis, Cataracts, Other. Denies: Blood Transfusion Reaction Anesthesia experience/problems:: none Other Surgeries: Yes: Cardiac Catheterization, Colonoscopy, Colostomy, Hernia Repair, Other Amputation: No Fractures: No - *Social History Last grade of school completed: Some college Smoking Status: Never smoker Alcohol Intake: never Substance Use Type: denies use *Occupational Status:: other Housing: house Household Members: spouse *Travel in the last 8 weeks: None - Psychiatric History Pschychiatric History:: Reports:: Anxiety Family Hx:: Unable to obtain, Diabetes, Cancer, Coronary Artery Disease, Heart Attack
--- NOTE | 2020-06-16 10:29 | HMH.OPNOTE ---
Date of procedure: 06/16/20 Pre-op Diagnosis:: Sacroiliitis Post-op Diagnosis:: Same Procedure performed:: Right SI joint stabilization Surgeon:: Jonn Block MD GARBAGE WORKER:: Kofi Decker Anesthesia: GETA Estimated blood loss (mL): 25 Clinical Note:: Patient is a pleasant 74-year-old white female who we have been treating for bilateral chronic sacroiliitis. She does get 80 to 90% relief of her pain symptoms for several weeks after SI joint injections however these have not been long-lasting recently. Worst pain is on the right side today. Previously patient did have increasing pain on the left side. Patient would like to move forward with the right side instead of the left side today as far as SI joint stabilization. Operative findings:: None Operative note:: Informed consent was obtained and the risk and benefits of the procedure was explained to the patient. Patient was taken to the operating room placed prone on the procedure table. Patient was prepped and draped in sterile fashion. A lateral view of the sacrum with C-arm was taken to make sure it was out of anteversion. We then did an oblique view of the right sacroiliac joint. We lined up the anterior and posterior sides of the joint to achieve a Ball . A line was drawn on the skin with the SI joint. The superior and inferior aspect of the joint were anesthetized using lidocaine. The superior and inferior aspect of the joint were marked off. 1 cm medial and 1 cm superiorly into the upper quadrant and 1 cm medial and 1 cm distal a 1 1/2 cm longitudinal incisions were made through the skin and subcutaneous tissues. Guidepins were then placed superior and inferior at a 90 degree angle to each other under C-arm guidance through the incision was made into the superior third and inferior third of the SI joint. Lateral C-arm view was then taken to check the depth of the pins into the SI joint. On the lateral view the joint finder was placed over the guidepin into the appropriate position. The working cannula retractor was then placed over the joint finder into the SI joint into the appropriate position and depth. The joint finder and guidepin were removed. The SI joint was drilled to remove cartilage and to get into the subchondral bone of the sacrum and ilium. The broach was then used to prepare a triangular groove into both the sacrum and ilium for insertion of stabilization grafts. A collagen spine was then placed into the prepared space and the stabilization graft was placed. This was done both superiorly inferiorly into the SI joint. The cannulated retractor was removed. The incisions were then closed with 2-0 Vicryl followed by bushra and 4-0 nylon. Dressings were placed and the patient was taken recovery in stable condition. Patient tolerated the procedure well with no complications. Patient was discharged home neurologically intact with good relief of pain symptoms. She was given postop antibiotics and postop pain medicine. Plan and disposition: We will follow-up with her in 1 week for wound check. We will follow-up in 2 weeks for removal of bushra and suture. If patient has any problems or questions she is to call us back in the pain clinic. Condition: stable Disposition: PACU Complications:: None
--- NOTE | 2020-06-16 10:31 | P.PN_ITS ---
[facility] Anesthesia Record Part I Intake, IV Amount: 600 Estimated blood loss (mL): 5 Urine output (mL): 0 Blood Pressure: 159/86 SaO2: 93 Pulse Rate: 65 Respiratory Rate: 16 Temperature: 97 F Patient is:: Drowsy, Stable Stable to PACU at:: 10:25
--- NOTE | 2020-06-16 14:12 | SUR.OPER ---
1025-after moving pt to stretcher, right hand/forearm noted to be very edematous from IV infiltration, #20 ga to right hand discontinued and dressing applied as well as warm compress, right upper extremity elevated, upon arrival to pacu #20 ga to left AC started per STEPHANY Skinner, vss, BUSINESS OFFICE SPECIALIST aware, report given to STEPHANY Bone
--- NOTE | 2020-06-16 15:09 | P.PN_ITS ---
[facility] Anesthesia Record Part II Discharge Time: 10:55 Destination: Surgical Day Care (OP Surgery) PACU nurse assessment reviewed?: Yes Patient Condition:: Good Anesthesia Complications:: None Swallowing reflex intact?: Yes Cyanosis?: No Blood Pressure: 176/83 Pulse Rate: 56 Temperature: 97 F Mental Status: Alert & Oriented Pain level:: 0 Nausea and/or vomitting:: None Intake, IV Amount: 0
== END 2020-06-16 12:15 | disposition home or self-care (01) ==
LOC: OR 07:18
PROVIDERS: PCP Internal Medicine; Visit Provider Anesthesiology
PROC: (CPT 27280; principal; 2020-06-16 08:45)
DX: M46.1 Sacroiliitis, not elsewhere classified (principal); E10.9 Type 1 diabetes mellitus without complications; I10 Essential (primary) hypertension; E78.5 Hyperlipidemia, unspecified; K21.9 Gastro-esophageal reflux disease without esophagitis; J45.909 Unspecified asthma, uncomplicated; F41.9 Anxiety disorder, unspecified; R00.2 Palpitations; M19.90 Unspecified osteoarthritis, unspecified site; D64.9 Anemia, unspecified; Z83.3 Family history of diabetes mellitus; Z80.9 Family history of malignant neoplasm, unspecified
CPT/HCPCS: 27280; 82962; 85025; 86328; 96374; C1713; J3370

== ENCOUNTER → 2020-07-03 10:04 | Outpatient (POV) | payer MEDICARE, SELFPAY ==
--- NOTE | 2020-07-03 10:35 | HMH.PAINSOAP ---
[facility] Pain Management SOAP Note Subjective:: Patient is a pleasant 74-year-old white female who presents today for follow-up after right SI joint stabilization with a corner lock. Patient is doing very well rating her pain a 0 out of 10. Patient stitches and bushra were removed today no sign symptoms of infection. Overall doing well ROS General: no recent weight change, no fever, no sleep disturbances Respiratory: no cough, no shortness of air, no recurring pulmonary infections Cardiovascular/Peripheral Vascular: No chest pain, No palpitations, no edema, no shortness of breath. Gastrointestinal: no new onset incontinence, normal bowel movements reported Genitourinary: no new onset incontinence Musculoskeletal: Hip pain at times Psychiatric: normal mood/ affect Neurological: [denies new onset weakness in extremities], [denies new onset balance issues] Objective:: Physical Exam General: Alert and oriented x3, no acute distress, pleasant and cooperative, [on room air] Lungs: Resps E/U, Symmetrical chest expansion, Eyes: PERRL Musculoskeletal: Flexion and extension of lumbar spine somewhat guarded secondary to pain, deep tendon reflexes normal, strength in upper and lower extremities 5/5, [abnormal gait noted] Neurological: speech clear, city jailer equal, no gross sensory deficits Assessment:: Chronic sacroiliitis status post right SI joint stabilization Plan:: We will see the patient back in 1 month reassess her symptoms at that time overall she is doing well. She has been instructed to call the office if she has any issues prior to her next appointment. Dr. Block has reviewed this note and agrees with this plan of care. This note was dictated using voice recognition software and may contain errors or omissions [facility] History I have reviewed the patient's past medical history: Yes Medical History: Reports:: Anxiety, Asthma, Atrial Fibrillation, Diabetes Mellitus Type 1, Gastroesophageal Reflux Disease(GERD), Hiatal Hernia, Hyperlipidemia, Hypertension, Palpitations Denies:: Cancer, Diabetes Mellitus Type 2, MRSA, Seizures *Have you ever received a pneumonia vaccine?: Yes *Have you received a flu vaccine this season?: Yes Other Medical History: Reports: Anemia, Arthritis, Cataracts, Other. Denies: Blood Transfusion Reaction Other Surgeries: Yes: Cardiac Catheterization, Colonoscopy, Colostomy, Hernia Repair, Other Amputation: No Fractures: No - *Social History Smoking Status: Never smoker Alcohol Intake: never Substance Use Type: denies use *Occupational Status:: other Housing: house Household Members: spouse *Travel in the last 8 weeks: None - Psychiatric History Pschychiatric History:: Reports:: Anxiety Family Hx:: Unable to obtain, Diabetes, Cancer, Coronary Artery Disease, Heart Attack
[2020-07-03 11:00] VITALS: BP 128/79; PULSE 74; RESP 18; TEMP 36.3; O2SAT 98; BMI 33.2
== END ==
PROVIDERS: PCP Internal Medicine; Visit Provider Clinical Nurse Specialist Family Health
DX: M46.1 Sacroiliitis, not elsewhere classified (principal); Z09 Encounter for follow-up examination after completed treatment for conditions other than malignant neoplasm
CPT/HCPCS: 99212; G0463

== ENCOUNTER → 2020-07-18 14:16 | Outpatient (CLI) | payer MEDICARE, SELFPAY ==
[2020-07-18 14:21] LABS: Microscopic, Urine URINE MICROSCOPIC (MICROSCOPIC)
[2020-07-18 14:54] LABS: Appearance,Urine CLEAR (Clear); Bilirubin,Urine Negative (Negative); Blood, Urine Negative (Negative); Color,Urine YELLOW (Yellow); Glucose,Urine (UA) Negative (Negative); Ketones,Urine Negative (Negative); Leukocyte Esterase,Urine TRACE (Negative); Nitrate,Urine Negative (Negative); Protein,Urine TRACE (Negative); Specific Gravity, Urine 1.015 (1.005-1.030); Urobilinogen,Urine 0.2 EU/dl (0.2)
[2020-07-18 15:02] LABS: Creatinine,Urine Random 31 mg/dL (Not Estab.)
[2020-07-18 15:04] LABS: Basophils # 0.1 K/mm3 (0-0.2); Basophils % 0.9 % (0.1-2.0); Eosinophils # 0.5 K/mm3 (0.0-0.4); Eosinophils % 4.7 % (0.1-12.0); Hemoglobin 10.9 g/dL (12.2-16.2); Lymphocytes # 1.6 K/mm3 (0.7-4.5); Lymphocytes % 15.6 % (10-50); Mean Corpuscular HGB Conc 29.4 g/dL (31.8-35.4); Mean Corpuscular Hemoglobin 32.9 pg (27.0-31.2); Mean Corpuscular Volume 111.9 fl (81-99); Mean Platelet Volume 8.3 fl (7.4-10.4); Monocytes # 0.4 K/mm3 (0.1-1.0); Monocytes % 4.1 % (1.7-9.3); Neutrophils # 7.5 K/mm3 (1.8-7.8); Neutrophils % 74.6 % (37.0-80.0); Platelet Count 210 K/mm3 (142-424); Red Blood Count 3.31 M/mm3 (4.20-5.40); Red Cell Distribution Width 16.8 % (11.5-17.5); White Blood Count 10.1 K/mm3 (4.8-10.8)
[2020-07-18 15:43] LABS: Chloride 105 mmol/L (98-107); Sodium 142 mmol/L (136-145)
[2020-07-18 15:44] LABS: Albumin Level 4.1 g/dl (3.5-5.0); Potassium 4.7 mmoL/L (3.5-5.1)
[2020-07-18 15:46] LABS: Anion Gap 11.7 mEq/L (5-15); Blood Urea Nitrogen 26 mg/dl (7-17); Carbon Dioxide 30 mmol/L (22.0-30.0); Estimated Glomerular Filt Rate 37 ml/min (>60); GFR (African American) 44 ML/MIN (>60)
[2020-07-18 15:47] LABS: Calcium 9.9 mg/dl (8.4-10.2); Glucose 158 mg/dl (74-100); Phosphorous 4.4 mg/dl (2.5-4.5)
[2020-07-18 16:11] LABS: Bacteria,Urine 2+ /lpf; Squamous Epithelial Cell,Urine Occasional #/hpf (0-5)
== END ==
PROVIDERS: Visit Provider Internal Medicine Nephrology
DX: N18.4 Chronic kidney disease, stage 4 (severe) (principal); R82.90 Unspecified abnormal findings in urine
CPT/HCPCS: 36415; 80069; 81001; 82570; 84155; 85025; 87086; 87088; 87186

== ENCOUNTER → 2020-07-20 16:32 | Outpatient (POV) | payer MEDICARE, SELFPAY | PROVIDERS: Visit Provider Internal Medicine Nephrology | DX: Z00.00 Encounter for general adult medical examination without abnormal findings (principal) ==

== ENCOUNTER → 2020-07-26 14:03 | Outpatient (POV) | payer MEDICARE, SELFPAY | DX: Z00.00 Encounter for general adult medical examination without abnormal findings (principal) ==

== ENCOUNTER → 2020-07-31 10:45 | Outpatient (POV) | payer MEDICARE, SELFPAY ==
[2020-07-31 11:06] VITALS: BP 138/78; PULSE 74; RESP 18; O2SAT 99; BMI 32.5
--- NOTE | 2020-07-31 11:17 | P.CONS_ITS ---
[facility] Pain Management SOAP Note Subjective:: Patient is a pleasant 74-year-old white female who presents today patient rates her pain a 0 out of 10 she had a right SI joint stabilization. Overall doing extremely well. Patient is healed with no sign symptoms of infection. Patient states she did have a fall 2 weeks after her initial surgery however she has not had any issues since then. ROS General: no recent weight change, no fever, no sleep disturbances Respiratory: no cough, no shortness of air, no recurring pulmonary infections Cardiovascular/Peripheral Vascular: No chest pain, No palpitations, no edema, no shortness of breath. Gastrointestinal: no new onset incontinence, normal bowel movements reported Genitourinary: no new onset incontinence Musculoskeletal: Back pain at times Psychiatric: normal mood/ affect Neurological: [denies new onset weakness in extremities], [denies new onset balance issues] Objective:: Physical Exam General: Alert and oriented x3, no acute distress, pleasant and cooperative, [on room air] Lungs: Resps E/U, Symmetrical chest expansion, Eyes: PERRL Musculoskeletal: Flexion and extension of lumbar spine somewhat guarded secondary to pain, deep tendon reflexes normal, strength in upper and lower extremities [5/5], [abnormal gait noted] Neurological: speech clear, parts identification technician equal, no gross sensory deficits Assessment:: Right SI joint stabilization, chronic sacroiliitis Plan:: We will see the patient back in 3 months reassess her symptoms at that time she has been instructed to call the office if she has any issues prior to her next appointment. Dr. Block has reviewed this note and agrees with this plan of care. This note was dictated using voice recognition software and may contain errors or omissions [facility] History I have reviewed the patient's past medical history: Yes Medical History: Reports:: Anxiety, Asthma, Atrial Fibrillation, Diabetes Mellitus Type 1, Gastroesophageal Reflux Disease(GERD), Hiatal Hernia, Hyperlipidemia, Hypertension, Palpitations Denies:: Cancer, Diabetes Mellitus Type 2, MRSA, Seizures *Have you ever received a pneumonia vaccine?: Yes *Have you received a flu vaccine this season?: Yes Other Medical History: Reports: Anemia, Arthritis, Cataracts, Other. Denies: Blood Transfusion Reaction Other Surgeries: Yes: Cardiac Catheterization, Colonoscopy, Colostomy, Hernia Repair, Other Amputation: No Fractures: No - *Social History Smoking Status: Never smoker Alcohol Intake: never Substance Use Type: denies use *Occupational Status:: other Housing: house Household Members: spouse *Travel in the last 8 weeks: None - Psychiatric History Pschychiatric History:: Reports:: Anxiety Family Hx:: Unable to obtain, Diabetes, Cancer, Coronary Artery Disease, Heart Attack
== END ==
PROVIDERS: PCP Internal Medicine; Visit Provider Clinical Nurse Specialist Family Health
DX: M46.1 Sacroiliitis, not elsewhere classified (principal); Z08 Encounter for follow-up examination after completed treatment for malignant neoplasm
CPT/HCPCS: 99212; G0463

== ENCOUNTER 2020-08-19 19:01 | Observation (INO) | payer MEDICARE, SELFPAY ==
[2020-08-19 19:03] VITALS: BP 177/60; PULSE 52; RESP 18; TEMP 36.8; O2SAT 98; BMI 31.2
[2020-08-19 19:10] VITALS: PULSE 48; O2SAT 97
--- NOTE | 2020-08-19 19:13 | XR_ITS ---
PROCEDURE: XR PELVIS 1-2V CLINICAL INDICATION: fall COMPARISON: CR XR HIP LT 2-3V W/PELVIS from 01/27/2019 TECHNIQUE: XR Pelvis AP View FINDINGS: No fracture or dislocation is evident. There is minor spurring and cortical regularity of the greater trochanter bilaterally. The iliac bones and pubic bones appear intact and the symphysis pubis is grossly normal. The SI joints are normal. IMPRESSION: No acute findings. Dictated by: Dr. Flip Sanders MD 08/20/2020 08:48 Dr. Flip Sanders MD in [place] 08/20/2020 08:48
--- NOTE | 2020-08-19 19:13 | XR_ITS ---
PROCEDURE: XR CHEST AP CLINICAL HISTORY: fall Pain posttraumatic COMPARISON: CR CXR2 CHEST-AP VIEW ONLY from 10/29/2016 CR CXR-PICC CHEST PORTABLE-PICC PLACEMENT from 10/30/2016 CR XR CHEST 2V from 01/27/[address] THORACIC SPINE WO CON from 08/19/2020 FINDINGS: Mild cardiomegaly without failure. The lungs are clear without infiltrates, suspicious nodules, or pleural effusions. No acute bony abnormalities. IMPRESSION: No acute findings. Dictated by: Bean Vargas MD 08/20/2020 08:54 Bean Vargas MD in [facility] 08/20/2020 08:54
--- NOTE | 2020-08-19 19:13 | XR_ITS ---
PROCEDURE: XR SHOULDER LT MIN 2V CLINICAL INDICATION: fall COMPARISON: Right shoulder same date FINDINGS: Clavicle is intact, there is mild degenerate change of the AC joint with spurring superiorly and inferiorly. The humeral head and glenoid appear intact. The visualized portions of the left upper ribs appear intact and the scapula is intact IMPRESSION: Degenerate change of the AC joint, no acute fracture seen Dictated by: Dr. Flip Sanders MD 08/20/2020 08:45 Dr. Flip Sanders MD in [place] 08/20/2020 08:45
--- NOTE | 2020-08-19 19:13 | CT_ITS ---
PROCEDURE: CT FACIAL BONES WO CON CLINICAL HISTORY: COMPARISON: No exams were available for comparison TECHNIQUE: Axial images obtained with sagittal and coronal reformats. All CT scans at the facility use one or more dose reduction, viz: automated exposure control, ma/kV adjustment per patient size (including targeted exams where dose is matched to indication, i.e. head), or iterative reconstruction technique. FINDINGS: Bones: Unremarkable. No fracture, lytic, or blastic changes evident. Extracranial soft tissues: Unremarkable. Sinuses: Unremarkable. No air-fluid levels or significant mucosal thickening. There is mild rightward bowing of the nasal septum. Orbits: Unremarkable. Other: No other pertinent findings. IMPRESSION: Grossly negative for acute maxillofacial injury Dictated by: Dr. Flip Sanders MD 08/20/2020 08:53 Dr. Flip Sanders MD in [place] 08/20/2020 08:53
--- NOTE | 2020-08-19 19:13 | CT_ITS ---
PROCEDURE: CT THORACIC SPINE WO CON CLINICAL HISTORY: fall Posttraumatic pain COMPARISON: CT CT PELVIS WO CON from 08/19/2020 TECHNIQUE: Axial images obtained with sagittal and coronal reformats. All CT scans at the facility use one or more dose reduction, viz: automated exposure control, ma/kV adjustment per patient size (including targeted exams where dose is matched to indication, i.e. head), or iterative reconstruction technique. FINDINGS: Multilevel degenerative changes are present with multilevel ossification of the anterior longitudinal ligament well as anterior endplate osteophytes and decrease in the disc spaces. There is diffuse osteopenia. No acute fracture or dislocation apparent. No lytic or blastic change. No paraspinal hematoma. Atelectatic or fibrotic changes are present in the lower lobes. There is a 2 cm left adrenal myelolipoma. Mitral valve annular and coronary artery calcifications are noted. IMPRESSION: 1. No acute fracture. 2. Degenerative changes as described above. Dictated by: Bean Vargas MD 08/20/2020 11:54 Bean Vargas MD in [place] 08/20/2020 11:54
--- NOTE | 2020-08-19 19:13 | CT_ITS ---
PROCEDURE: CT CERVICAL SPINE WO CON CLINICAL INDICATION: fall COMPARISON: No exams were available for comparison TECHNIQUE: Axial images obtained with sagittal and coronal reformats. All CT scans at the facility use one or more dose reduction, viz: automated exposure control, ma/kV adjustment per patient size (including targeted exams where dose is matched to indication, i.e. head), or iterative reconstruction technique. Axial spiral CT scanning performed of the cervical spine beginning at the base of the skull and continuing to the upper T-spine. 3-D multiplanar reconstruction with 3-D manipulation of volumetric data set in image rendering was completed by the radiologist and/or technologist with the supervision of the radiologist on independent workstation. FINDINGS: No fracture nor subluxation is evident. Normal prevertebral soft tissues. There is normal curvature and alignment. There is generalized osteopenia. There is mild disc space narrowing at the C3-4, C4-5 and C5-6 levels. There is mild posterior osteophytic spurring at these levels. The spinal canal is normal in size throughout. There is no abnormal disc protrusion. The lung apices appear clear bilaterally. IMPRESSION: Lysed osteopenia mild multilevel degenerate changes, no acute pathology noted Dictated by: Dr. Flip Sanders MD 08/20/2020 08:33 Dr. Flip Sanders MD in [place] 08/20/2020 08:33
--- NOTE | 2020-08-19 19:13 | XR_ITS ---
PROCEDURE: XR KNEE LT 3V CLINICAL INDICATION: fall COMPARISON: CT CT KNEE LT WO CON from 08/19/2020 FINDINGS: No fracture or dislocation. No lytic or blastic change. There is normal mineralization. There is moderate diffuse soft tissue swelling medially. There is faint calcification of the medial and lateral meniscus. The medial and the lateral joint space appear grossly normal though there is prominent narrowing of the patellofemoral space. There is a radiolucent line anterior aspect of the mid patella only seen on the lateral projection and this could be a nondisplaced incomplete fracture. There is fluid in suprapatellar bursa. There is prominent calcification of the of the popliteal artery. IMPRESSION: Diffuse soft tissue swelling medially consistent with contusion in addition to what appears to be nondisplaced incomplete fracture of the mid patella associated with prominent effusion in the suprapatellar bursa Dictated by: Dr. Flip Sanders MD 08/20/2020 08:43 Dr. Flip Sanders MD in [place] 08/20/2020 08:43
--- NOTE | 2020-08-19 19:13 | XR_ITS ---
PROCEDURE: XR SHOULDER RT MIN 2V CLINICAL INDICATION: fall COMPARISON: No exams were available for comparison FINDINGS: The clavicle is intact and the AC joint appears normal. The humeral head and glenoid appear normal. There are no soft tissue calcifications. The visualized portions of the right upper ribs appear intact. IMPRESSION: No acute findings. Dictated by: Dr. Flip Sanders MD 08/20/2020 08:39 Dr. Flip Sanders MD in [facility] 08/20/2020 08:39
--- NOTE | 2020-08-19 19:13 | CT_ITS ---
PROCEDURE: CT HEAD/BRAIN WO CON CLINICAL INDICATION: fall Blunt trauma to face COMPARISON: CR,CT HDWO CT HEAD W/O CONTRAST from 10/29/2013 TECHNIQUE: Axial images obtained. All CT scans at the facility use one or more dose reduction, viz: automated exposure control, ma/kV adjustment per patient size (including targeted exams where dose is matched to indication, i.e. head), or iterative reconstruction technique. FINDINGS: No midline shift, mass effect, intracranial hemorrhage, hydrocephalus, or extra-axial fluid collection is evident. The basilar cisterns are prominent, the sylvian fissures are particularly prominent as are the cortical sulci. There are atrophic changes of the cerebellar hemispheres as well. There are moderate periventricular hypodensities consistent with chronic ischemic white matter changes. Bony calvarium appears intact. There is mild diffuse soft tissue swelling of the right cheek and anterior and lateral to the right zygomatic arch. The mastoids are clear. The visualized portions of the paranasal sinuses are clear. IMPRESSION: Findings of prominent cortical moderate cerebellar atrophy and chronic ischemic white matter changes, no acute intracranial pathology noted Dictated by: Dr. Flip Sanders MD 08/20/2020 08:37 Dr. Flip Sanders MD in [place] 08/20/2020 08:37
--- NOTE | 2020-08-19 19:31 | XR_ITS ---
PROCEDURE: XR FEMUR LT 2V CLINICAL INDICATION: fall, tenderness COMPARISON: No exams were available for comparison FINDINGS: No fracture or dislocation. No lytic or blastic change. There is normal mineralization. The joint spaces are well-preserved. No significant degenerative/arthritic changes. There is mild spurring of the greater trochanter. No erosive changes evident. There is prominent arteriosclerotic calcification the superficial femoral artery. There is apparent nondisplaced fracture of the patella. Other findings:None. IMPRESSION: Nondisplaced patellar fracture, grossly negative left femur Dictated by: Dr. Flip Sanders MD 08/20/2020 08:47 Dr. Flip Sanders MD in [place] 08/20/2020 08:47
--- NOTE | 2020-08-19 19:33 | XR_ITS ---
PROCEDURE: XR KNEE RT 3V CLINICAL INDICATION: fall, tenderness COMPARISON: Left knee same date FINDINGS: No fracture or dislocation. No lytic or blastic change. There is normal mineralization. The joint spaces are well-preserved. There is prominent narrowing of the patellofemoral space with spurring of the superior border of the patella. There is prominent arteriosclerotic calcification of the pelvic to artery. There is a small fabella noted. IMPRESSION: Degenerate changes primarily involving the patellofemoral space, no acute fracture seen Dictated by: Dr. Flip Sanders MD 08/20/2020 08:40 Dr. Flip Sanders MD in [place] 08/20/2020 08:40
--- NOTE | 2020-08-19 21:16 | HMH.EDFALL ---
ED Disposition Condition on Discharge: Good - Critical Care Critical Care Time: No <Vandana Murry - Last Filed: 08/19/20 21:16> <Christophe Ca - Last Filed: 08/20/20 01:28> Clinical Impression: Renal insufficiency Fall Qualifiers: Encounter type: initial encounter Qualified Code(s): W19.XXXA - Unspecified fall, initial encounter Patellar fracture Qualifiers: Encounter type: initial encounter Fracture type: closed Fracture morphology: comminuted Fracture alignment: nondisplaced Laterality: left Qualified Code(s): S82.045A - Nondisplaced comminuted fracture of left patella, initial encounter for closed fracture Rupture of left patellar tendon Qualifiers: Encounter type: initial encounter Qualified Code(s): S86.812A - Strain of other muscle(s) and tendon(s) at lower leg level, left leg, initial encounter Disposition: Admitted as Observation Attestation: On 08/19/20, the high probability of a clinically significant, sudden or life threatening deterioration of the following system(s) required my full and direct attention, intervention and personal management. The time I documented below is in addition to time spent performing reported procedures but includes the following listed in this critical care notation. Medical Decision Making - Medical Records Medical records reviewed: Yes: I reviewed the patient's medical records. - [place] Inquiry Pt receiving controlled substance: No <Jeanmarie,Diana - Last Filed: 08/19/20 21:16> - Lab Data Lab results reviewed: Yes: I reviewed the patient's lab results. Result diagrams: 08/20/20 00:10 08/20/20 00:10 - Radiology Data #1 Image(s): Chest, Shoulder, Pelvis, Knee Image Reviewed: Yes I reviewed the patient's radiology image Preliminary Findings: Abnormal (patellar fx ) - CT Data CT Scan: Head, C-Spine, Pelvis, T-Spine, Other (knee and hip ) Time Received: 00:[address] Reviewed: Yes: I have viewed the radiologist's interpretation Preliminary Findings: Abnormal (patellar fx ) <Christophe Ca - Last Filed: 08/20/20 01:28> Vital Signs: 08/19/20 19:03 Temperature 98.2 F Temperature Source Oral Pulse Rate [Right] 52 L Respiratory Rate 18 Blood Pressure [Right Arm] 177/60 H Blood Pressure Mean [Right Arm] 99 Blood Pressure Source [Right Arm] Automatic Cuff Blood Pressure Position [Right Arm] Supine 02 Sat by Pulse Oximetry 98 Oxygen Delivery Method Room Air - Lab Data Lab Results 08/19/20 22:10: Urine Color Yellow, Urine Appearance Clear, Urine pH 8.0, Ur Specific [place] 1.015, Urine Protein 1+, Urine Glucose (UA) Negative, Urine Ketones Negative, Urine Blood Negative, Urine Nitrate Negative, Urine Bilirubin Negative, Urine Urobilinogen 0.2, Ur Leukocyte Esterase Negative, Urine RBC None, Urine WBC 5-10, Ur Squamous Epith Cells Occasional, Urine Bacteria None 08/20/20 00:10: WBC 13.3 H, RBC 3.58 L, Hgb 11.5 L, Hct 38.1, MCV 106.2 H, MCH 32.2 H, MCHC 30.3 L, RDW 15.8, Plt Count 178, MPV 9.6, Neut % (Auto) 83.7 H, Lymph % (Auto) 10.6, [place] % (Auto) 3.8, Eos % (Auto) 1.4, Baso % (Auto) 0.5, Neut # (Auto) 11.2 H, Lymph # (Auto) 1.4, [place] # (Auto) 0.5, Eos # (Auto) 0.2, Baso # (Auto) 0.1 08/20/20 00:10: Sodium 140, Potassium 4.4, Chloride 103, Carbon Dioxide 30, Anion Gap 11.4, BUN 34 H, Creatinine 1.50 H, Estimated Creat Clear 37, Estimated GFR 34 L, Est GFR ( Amer) 41 L, Glucose 144 H, Calcium 10.3 H, Total Bilirubin 0.4, AST 30, ALT 15, Alkaline Phosphatase 77, Total Protein 7.0, Albumin 4.1, Globulin 2.9, Albumin/Globulin Ratio 1.4 Orders (Tests/Meds): ED MEDICATIONS Generic Name Dose Route Start Last Admin Trade Name Freq PRN Reason Stop Dose Admin Sodium Chloride 1,000 mls @ 999 mls/hr 08/20/20 00:30 08/20/20 00:18 Sod Chlor 0.9% 1000ml Bag IV 08/20/20 01:30 999 mls/hr .Q1H1M ABDIEL Administration Discontinued Medications Generic Name Dose Route Start Last Admin Trade Name Freq PRN Reason Stop Dose Admin Morphine Sulf
[2020-08-19 21:31] VITALS: BP 220/56; O2SAT 98
[2020-08-19 22:01] VITALS: BP 222/70; PULSE 54
--- NOTE | 2020-08-19 22:11 | CT_ITS ---
PROCEDURE: CT PELVIS WO CON CLINICAL INDICATION: fall Fall with injury and pain COMPARISON: CR XR PELVIS 1-2V from 08/19/2020 TECHNIQUE: Axial images obtained with sagittal and coronal reformats. All CT scans at the facility use one or more dose reduction, viz: automated exposure control, ma/kV adjustment per patient size (including targeted exams where dose is matched to indication, i.e. head), or iterative reconstruction technique. FINDINGS: No acute fracture or dislocation. Mild osteoarthritic changes are present involving the hips and SI joints. Postsurgical changes of the right SI joint with 2 metallic implantable devices at the SI joint on the right. Bony hypertrophy noted along the greater trochanters. No lytic or blastic change. There is a mild amount of retained colonic feces. There is diffuse vascular calcification. Subcutaneous edema noted at the lumbosacral region posteriorly. IMPRESSION: As above, no acute finding Dictated by: Bean Vargas MD 08/20/2020 10:40 Bean Vargas MD in [place] 08/20/2020 10:40
--- NOTE | 2020-08-19 22:11 | CT_ITS ---
PROCEDURE: CT KNEE LT WO CON CLINICAL HISTORY: fall Posttraumatic pain COMPARISON: No exams were available for comparison TECHNIQUE: Axial images obtained with sagittal and coronal reformats. All CT scans at the facility use one or more dose reduction, viz: automated exposure control, ma/kV adjustment per patient size (including targeted exams where dose is matched to indication, i.e. head), or iterative reconstruction technique. FINDINGS: There is a nondisplaced comminuted fracture involving the patella. Hyperdense knee joint effusion is present consistent with hemarthrosis. Osteoarthritic changes are involving all 3 compartments including the patellofemoral joint. There is no evidence dislocation. There is diffuse vascular calcification. Diffuse osteopenia also noted. Capsular calcification noted on the posterior aspect of the medial compartment. There is a small Vaz's cyst. Mild prepatellar edema. Mild soft tissue swelling involves the subcutaneous tissues of the calf medially and posteriorly at the popliteal fossa region IMPRESSION: Comminuted nondisplaced fracture of the patella with hemarthrosis and osteoarthritis Dictated by: Bean Vargas MD 08/20/2020 10:47 Bean Vargas MD in [place] 08/20/2020 10:47
--- NOTE | 2020-08-19 22:11 | CT_ITS ---
PROCEDURE: CT HIP LT WO CON CLINICAL HISTORY: fall Left hip pain following injury COMPARISON: CT CT PELVIS WO CON from 08/19/2020 TECHNIQUE: Axial images obtained with sagittal and coronal reformats. All CT scans at the facility use one or more dose reduction, viz: automated exposure control, ma/kV adjustment per patient size (including targeted exams where dose is matched to indication, i.e. head), or iterative reconstruction technique. FINDINGS: Osteoarthritic changes are present involving the hip with bony hypertrophy at the greater trochanter. No acute fracture or dislocation. There is diffuse vascular calcification. IMPRESSION: No acute finding Dictated by: Bean Vargas MD 08/20/2020 10:43 Bean Vargas MD in [place] 08/20/2020 10:43
[2020-08-19 22:27] LABS: Microscopic, Urine URINE MICROSCOPIC (MICROSCOPIC)
[2020-08-19 22:31] VITALS: BP 125/78; PULSE 54
[2020-08-19 22:39] LABS: Appearance,Urine CLEAR (Clear); Bilirubin,Urine Negative (Negative); Blood, Urine Negative (Negative); Color,Urine YELLOW (Yellow); Glucose,Urine (UA) Negative (Negative); Ketones,Urine Negative (Negative); Leukocyte Esterase,Urine Negative (Negative); Nitrate,Urine Negative (Negative); Protein,Urine 1+ (Negative); Specific Gravity, Urine 1.015 (1.005-1.030); Urobilinogen,Urine 0.2 EU/dl (0.2)
[2020-08-19 22:54] LABS: Squamous Epithelial Cell,Urine Occasional #/hpf (0-5)
[2020-08-20] VITALS (9 sets, daily range): BP systolic 157–195; BP diastolic 64–83; PULSE 45–79; RESP 16–20; TEMP 36.8–37.2; O2SAT 92–99; BMI 31.6
--- NOTE | 2020-08-20 00:08 | PC.NURSE ---
notified traffic signal supervisor maintenance for bed assignment
[2020-08-20 00:24] LABS: Basophils # 0.1 K/mm3 (0-0.2); Basophils % 0.5 % (0.1-2.0); Eosinophils # 0.2 K/mm3 (0.0-0.4); Eosinophils % 1.4 % (0.1-12.0); Hematocrit 38.1 % (37.0-47.0); Hemoglobin 11.5 g/dL (12.2-16.2); Lymphocytes # 1.4 K/mm3 (0.7-4.5); Lymphocytes % 10.6 % (10-50); Mean Corpuscular HGB Conc 30.3 g/dL (31.8-35.4); Mean Corpuscular Hemoglobin 32.2 pg (27.0-31.2); Mean Corpuscular Volume 106.2 fl (81-99); Mean Platelet Volume 9.6 fl (7.4-10.4); Monocytes # 0.5 K/mm3 (0.1-1.0); Monocytes % 3.8 % (1.7-9.3); Neutrophils # 11.2 K/mm3 (1.8-7.8); Neutrophils % 83.7 % (37.0-80.0); Platelet Count 178 K/mm3 (142-424); Red Blood Count 3.58 M/mm3 (4.20-5.40); Red Cell Distribution Width 15.8 % (11.5-17.5); White Blood Count 13.3 K/mm3 (4.8-10.8)
[2020-08-20 00:32] LABS: Alanine Aminotransferase 15 U/L (12-78); Albumin Level 4.1 g/dl (3.5-5.0); Albumin/Globulin Ratio 1.4 (1.1-1.8); Alkaline Phosphatase 77 U/L (38-126); Anion Gap 11.4 mEq/L (5-15); Aspartate Amino Transferase 30 U/L (14-36); Bilirubin,Total 0.4 mg/dl (0.2-1.3); Blood Urea Nitrogen 34 mg/dl (7-17); Calcium 10.3 mg/dl (8.4-10.2); Carbon Dioxide 30 mmol/L (22.0-30.0); Chloride 103 mmol/L (98-107); Creatinine Clearance Estimated 37 mL/min (50-200); Estimated Glomerular Filt Rate 34 ml/min (>60); GFR (African American) 41 ML/MIN (>60); Globulin 2.9 g/dL (1.3-3.2); Glucose 144 mg/dl (74-100); Potassium 4.4 mmoL/L (3.5-5.1); Sodium 140 mmol/L (136-145)
--- NOTE | 2020-08-20 03:08 | PC.NURSE ---
patient up to floor via stretcher.
--- NOTE | 2020-08-20 03:32 | PC.NURSE ---
unable to do med rec at this time. pt does not have access to med list
[2020-08-20 05:20] LABS: POC Glucose,Bedside 133 (70-110)
[2020-08-20 07:19] LABS: Chloride 106 mmol/L (98-107)
[2020-08-20 07:20] LABS: Potassium 4.6 mmoL/L (3.5-5.1); Sodium 140 mmol/L (136-145)
[2020-08-20 07:21] LABS: Basophils # 0.1 K/mm3 (0-0.2); Basophils % 0.6 % (0.1-2.0); Eosinophils # 0.2 K/mm3 (0.0-0.4); Eosinophils % 1.8 % (0.1-12.0); Hematocrit 35.9 % (37.0-47.0); Hemoglobin 10.5 g/dL (12.2-16.2); Lymphocytes # 1.2 K/mm3 (0.7-4.5); Lymphocytes % 9.6 % (10-50); Mean Corpuscular HGB Conc 29.4 g/dL (31.8-35.4); Mean Corpuscular Hemoglobin 31.3 pg (27.0-31.2); Mean Corpuscular Volume 106.5 fl (81-99); Mean Platelet Volume 9.4 fl (7.4-10.4); Monocytes # 0.6 K/mm3 (0.1-1.0); Monocytes % 4.8 % (1.7-9.3); Neutrophils # 10.3 K/mm3 (1.8-7.8); Neutrophils % 83.2 % (37.0-80.0); Platelet Count 177 K/mm3 (142-424); Red Blood Count 3.37 M/mm3 (4.20-5.40); Red Cell Distribution Width 15.7 % (11.5-17.5); White Blood Count 12.4 K/mm3 (4.8-10.8)
[2020-08-20 07:22] LABS: Blood Urea Nitrogen 31 mg/dl (7-17); Creatinine Clearance Estimated 37 mL/min (50-200); Estimated Glomerular Filt Rate 34 ml/min (>60); GFR (African American) 41 ML/MIN (>60)
[2020-08-20 07:23] LABS: Anion Gap 9.6 mEq/L (5-15); Calcium 9.7 mg/dl (8.4-10.2); Carbon Dioxide 29 mmol/L (22.0-30.0); Glucose 139 mg/dl (74-100); Magnesium 1.5 mg/dl (1.6-2.3)
--- NOTE | 2020-08-20 07:52 | PC.NURSE ---
Dr. Diaz notified about consult.
--- NOTE | 2020-08-20 09:02 | HMH.HP ---
*Admission Date: 08/20/20 *Chief complaint: fall *History of present illness: this pt was walking into office and tripped - fell face forward and was seen in the ed - Patient states that she was moving things around when her right foot accidentally cut the lip end of a box causing her to fall. Patient states that she did not try to extend her hands and hit the ground face first. She states that she also hit both of her knees and that she was unable to get up on her own. She states that she was helped up onto a chair. Patient denies losing consciousness and is not on blood thinners. Denies any fevers, chills, nausea, vomiting, chest pain, huang pain, numbness, tingling, weakness. (Vandana Murry) pt was noted to have fx lt patella and disrupted ext mech and had lt hip pain w/o fracture and unable to ambulate - pt was admitted for treatment and eval [facility] History I have reviewed the patient's past medical history: Yes Medical History: Reports:: Anxiety, Asthma, Atrial Fibrillation, Diabetes Mellitus Type 1, Diabetes Mellitus Type 2, Gastroesophageal Reflux Disease(GERD), Hiatal Hernia, Hyperlipidemia, Hypertension, Palpitations Denies:: Cancer, MRSA, Seizures *Have you ever received a pneumonia vaccine?: No *Have you received a flu vaccine this season?: Yes Other Medical History: Reports: Anemia, Arthritis, Cataracts, Glaucoma, Other. Denies: Blood Transfusion Reaction Other Surgeries: Yes: Cardiac Catheterization, Colonoscopy, Colostomy, Hernia Repair, Other Amputation: No Fractures: No - *Social History Last grade of school completed: Some college Smoking Status: Never smoker Alcohol Intake: former Alcohol Intake Frequency:: holidays/special occasions only Substance Use Type: denies use *Occupational Status:: retired Housing: house Household Members: spouse *Travel in the last 8 weeks: None - Psychiatric History Pschychiatric History:: Reports:: Anxiety Family Hx:: No significant family history Review of Systems - Review of Systems Review of systems:: pertinent systems reviewed and negative unless documented below - Constitutional Denies fever(s) - Eyes Denies change in vision - ENT Denies sore throat - *Cardiovascular Denies chest pain at rest, Denies shortness of breath - *Respiratory Denies cough - *Gastrointestinal Denies abdominal pain - *Genitourinary Denies blood in urine - *Musculoskeletal Reports joint pain, Reports limited joint movement, Denies neck pain - Integumentary/Breasts Denies rash - *Neurologic Reports headache(s), Denies localized weakness, Denies seizure-like activity - Psychiatric Denies anxiety Meds Home Medications Medication Instructions Recorded Confirmed Type Alendronate Sodium 35 mg PO DAILY 05/10/19 08/20/20 History Donepezil HCl [Donepezil ODT 5mg] 5 mg PO DAILY 05/10/19 08/20/20 History Gabapentin [Gabapentin 100mg Cap] 100 mg PO BID 05/10/19 08/20/20 History Tramadol HCl [Tramadol 50mg 50 mg PO DAILY PRN 05/10/19 08/20/20 History Tab] lisinopriL [Lisinopril 5mg 5 mg PO DAILY 05/10/19 08/20/20 History Tablet] allopurinol 300 mg tablet 300 mg PO DAILY tab 08/16/19 08/20/20 History bisoprolol fumarate 5 mg tablet 5 mg PO DAILY tab 08/16/19 08/20/20 History fluticasone propionate 50 1 mcg INTRANASAL DAILY PRN 08/16/19 08/20/20 History mcg/actuation nasal spray,suspension furosemide 40 mg tablet 40 mg PO DAILY tab 08/16/19 08/20/20 History glimepiride 1 mg tablet 1 mg PO DAILY tab 08/16/19 08/20/20 History insulin glargine 100 unit/mL 8 unit SQ QHS ml 09/13/19 08/20/20 History subcutaneous solution sertraline 25 mg tablet 25 mg PO .COMPLEX tab 12/06/19 08/20/20 History Rosuvastatin Calcium 5 mg PO DAILY 02/14/20 08/20/20 History famotidine 20 mg tablet 20 mg PO DAILY 04/25/20 08/20/20 History loperamide 2 mg tablet 2 mg PO QID PRN 04/25/20 08/20/20 History sitagliptin 50 mg tablet 50 mg PO DAILY 04/25/20 08/20/20 History Albuterol Sul
--- NOTE | 2020-08-20 11:08 | HMH.ORTHOCON ---
*Admission Date: 08/20/20 *Reason for consult:: Fracture patella, left knee *History of present illness: Patient is a 74-year-old female admitted to hospital from ER for management of left patella fracture. Patient states that she fell down after tripping over a box at home yesterday. She says she fell forwards facedown hitting her both knees on the ground. She says she was unable to get up or walk afterwards. After she was brought to the ER, extensive evaluation was performed and only significant injury was noted to be a nondisplaced left patella fracture. The left knee was placed in a knee immobilizer and patient was admitted to the hospital. This morning, patient is lying down in the bed and appears comfortable. She is reporting pain in her left knee, mostly over the anterior aspect, with radiation into the left thigh and hip joint. No history of any distal tingling or numbness. Patient denies dizziness, headache or loss of consciousness. Denies any fevers, chills, nausea, vomiting, chest pain, abdominal pain, numbness, tingling, weakness. She reports chronic low back pain and has been under pain management for injections. She also reports some chronic bilateral knee pain prior to this fall. [facility] History I have reviewed the patient's past medical history: Yes Medical History: Reports:: Anxiety, Asthma, Atrial Fibrillation, Diabetes Mellitus Type 1, Diabetes Mellitus Type 2, Gastroesophageal Reflux Disease(GERD), Hiatal Hernia, Hyperlipidemia, Hypertension, Palpitations Denies:: Cancer, MRSA, Seizures *Have you ever received a pneumonia vaccine?: No *Have you received a flu vaccine this season?: Yes Other Medical History: Reports: Anemia, Arthritis, Cataracts, Glaucoma, Other. Denies: Blood Transfusion Reaction Other Surgeries: Yes: Cardiac Catheterization, Colonoscopy, Colostomy, Hernia Repair, Other Amputation: No Fractures: No - *Social History Last grade of school completed: Some college Smoking Status: Never smoker Alcohol Intake: former Alcohol Intake Frequency:: holidays/special occasions only Substance Use Type: denies use *Occupational Status:: retired Housing: house Household Members: spouse *Travel in the last 8 weeks: None - Psychiatric History Pschychiatric History:: Reports:: Anxiety Family Hx:: No significant family history Review of Systems - Review of Systems Review of systems:: pertinent systems reviewed and negative unless documented below - Constitutional Denies chills, Denies fever(s) - Eyes Denies change in vision - ENT Denies change in voice, Denies difficulty swallowing - *Cardiovascular Denies chest pain, Denies shortness of breath - *Respiratory Denies chest congestion, Denies cough - *Gastrointestinal Denies abdominal pain, Denies change in bowel habits - *Musculoskeletal Reports joint pain, Reports joint swelling, Reports limited joint movement - *Neurologic Reports headache(s), Denies localized weakness, Denies seizure-like activity - Endocrine Reports cold intolerance, Reports heat intolerance Meds Home Medications Medication Instructions Recorded Confirmed Type Donepezil HCl [Donepezil ODT 5mg] 5 mg PO DAILY 05/10/19 08/20/20 History Gabapentin [Gabapentin 100mg Cap] 100 mg PO BID 05/10/19 08/20/20 History Tramadol HCl [Tramadol 50mg 50 mg PO TID 05/10/19 08/20/20 History Tab] allopurinol 300 mg tablet 300 mg PO DAILY tab 08/16/19 08/20/20 History bisoprolol fumarate 5 mg tablet 5 mg PO DAILY tab 08/16/19 08/20/20 History fluticasone propionate 50 1 mcg INTRANASAL DAILY PRN 08/16/19 08/20/20 History mcg/actuation nasal spray,suspension furosemide 40 mg tablet 40 mg PO DAILY tab 08/16/19 08/20/20 History glimepiride 1 mg tablet 1 mg PO DAILY tab 08/16/19 08/20/20 History insulin glargine 100 unit/mL 8 unit SQ HS ml 09/13/19 08/20/20 History subcutaneous solution sertraline 25 mg tablet 25 mg PO HS tab 12/06/19 08/20/20 History Rosuvastatin Calci
[2020-08-20 11:43] LABS: POC Glucose,Bedside 198 (70-110)
--- NOTE | 2020-08-20 13:31 | P.CONPHA_ITS ---
[facility] Pharmacy VTE Monitoring - Patient Demographics Admission date: 08/20/20 Report Date: 08/20/20 Time: 13:31 Allergies/Adverse Reactions: Patient Allergies No Known Allergies Allergy (Verified 06/16/20 07:32) Height: 1.52 m Weight: 73.198 kg Patient Problems: Current Active Problems Degenerative disc disease (Chronic) Fall (Acute) Patellar fracture (Acute) Rupture of left patellar tendon (Acute) Renal insufficiency (Acute) Obesity (BMI 30.0-34.9) (Acute) Diabetes (Acute) Anemia (Acute) - VTE Risk Labs: VTE Related Lab Results Hgb 10.5 g/dL (12.2-16.2) L 08/20/20 06:10 Hct 35.9 % (37.0-47.0) L 08/20/20 06:10 Plt Count 177 K/mm3 (142-424) 08/20/20 06:10 BUN 31 mg/dl (7-17) H 08/20/20 06:10 Creatinine 1.50 mg/dl (0.52-1.04) H 08/20/20 06:10 Estimated Creat Clear 37 mL/min (50-200) 08/20/20 06:10 VTE Score: 5 VTE Risk Level: Low Risk - Prophylaxis VTE Prophylaxis Ordered?: Yes Types of VTE Prophylaxis: Pharmacological Pharmacologic Type: Enoxaparin
[2020-08-20 16:54] LABS: POC Glucose,Bedside 202 (70-110)
--- NOTE | 2020-08-20 17:24 | PC.NURSE ---
Pt has c/o lt knee pain multiple times this shift, pt has been medicated per MAR once this shift and has refused other times when offered. Pt has slept in bed majority of the day and has refused to get up. Immobilizer remains in place on LLE. Ice packs have been applied for comfort PRN this shift. [place] cath remains patent and intact draining clear, yellow urine. No other acute changes or complaints at this time.
[2020-08-20 22:24] LABS: POC Glucose,Bedside 184 (70-110)
[2020-08-21 04:00] VITALS: BP 88/51; PULSE 75; RESP 20; TEMP 37.4; O2SAT 97
--- NOTE | 2020-08-21 04:23 | PC.NURSE ---
No acute changes this shift, A&Ox4, Lungs CTA, bowel sounds present in all 4 quadrants, catheter patent draining yellow urine, Pt medicated for pain per MAR, Brace in place on Lt knee, Pt denies SOA, headache , or N/V
[2020-08-21 05:46] LABS: POC Glucose,Bedside 146 (70-110)
[2020-08-21 08:00] VITALS: BP 150/66; PULSE 83; RESP 20; TEMP 37; O2SAT 96
--- NOTE | 2020-08-21 08:00 | PC.NURSE ---
PT ASSESSED AT THIS TIME. BILATERAL LUNG SOUNDS CLEAR. NO EDEMA NOTED. L LEG IMMOBILIZER IN PLACE. BOWEL SOUNDS HYPOACTIVE THROUGHOUT. BRUISING NOTED TO L KNEE, CHIN, NOSE, AND EYES. INDWELLING CATHETER PATENT AND DRAINING DARK YELLOW URINE. PT STATES PAIN 3/10 ON VERBAL SCALE. PT WANTS IMMOBILIZER OFF. RN ENCOURAGED TO KEEP IN PLACE. PT DENIES ANY FURTHER NEEDS. WILL CONTINUE TO OBSERVE.
--- NOTE | 2020-08-21 09:30 | PC.NURSE ---
PT ASSISTED TO CHAIR AT THIS TIME X2 MAX ASSIST. VERY PAINFUL FOR PT TO AMBULATE. PT IS ALSO SCARED OF FALLING.
--- NOTE | 2020-08-21 10:52 | HMH.PTEV ---
Physical Therapy Evaluation Rehab PT IP Evaluation Start: 08/20/20 17:26 Freq: ONCE Status: Active Protocol: Document 08/21/20 09:00 PHORNE (Rec: 08/21/20 10:51 PHORNE [id number]) Subjective/History History History 74 yowf adm to [facility] S/P ground level fall at home with resulting L patella fx. She is independent with mobility using cane at home and lives with her . Subjective Subjective Pt c/o pain in the L LE. Rehab PT IP Eval Objective Appearance Patient Behavior Appropriate Patient Orientation Person,Place,Time Difficulty following instructions none Speech Pattern Clear Ambulation Patient Able to Ambulate Yes Ambulation Observation IP General Gait Pattern Observation Antalgic Gait,Shuffling Step, Decrease Weight Bear (L), Decrease Stride Lngth (R), Decrease Stride Lngth (L) Ambulation Distance (feet) 2 Ambulation Assistive Device Rolling Walker Ambulation Ability Minimal x 2 (25% assist) Balance Ability to Arise Able, uses arms to help Sitting Balance Steady, safe Standing Balance Steady, wide stance Dynamic Sitting Balance Ability Good Dynamic Standing Balance Ability Poor Transfers Bed Transfer Ability Moderate x 1 (50% assist) Chair Transfer Ability Minimal x 2 (25% assist) Sit to Stand Bed Transfer Ability Minimal x 2 (25% assist) Sit to Stand Chair Transfer Ability Minimal x 2 (25% assist) ROM All Extremities PT ROM Status WFL Abnormal ROM Comment except L LE NT due to knee immpobilizer MMT All Extremities PT MMT WFL Abnormal MMT Grade except L LE NT due to knee immobilizer. Rehab PT IP prob,goals,plan Problems Date of Evaluation: 08/21/20 PT IP Problems Bed Mobility,Transfers,Gait, Balance,Self care Rehab Potential Rehab Potential Fair Equipment Needs Assistive Devices Rolling / Wheeled Walker Plan PT Intervention Plan Bed Mobility,Transfers,Gait, Balance,Self care,Therapeutic Exercise PT Plan Frequency BID Duration LOS Discharge Goals Bed Transfer Ability Minimal x 1 (25% assist) Sit to Stand Chair Transfer Ability Minimal x 1 (25% assist) Ambulation Assistive Device Rolling Walker Ambulation Distance (feet) 10 Disch
--- NOTE | 2020-08-21 11:22 | SW/DCPLANNER ---
Addendum entered by Alyssa Pineda 08/22/20 09:07: Kymberly with [facility] evaluated this patient yesterday at [facility]. Kymberly has stated this morning that patient is approved to be admitted at [facility] today. MD will discharge this patient today. Per Kymberly no further COVID testing is needed. Patient prefers to transport via ambulance. Patient has also requested that Dr Jean follow her at [facility] and he is agreeable at this time. I have notified patients nurse (Katharine) of discharge plan for today. Addendum entered by Alyssa Pineda 08/21/20 14:38: PT (Gerardo) has recommended placement for this patient this afternoon due to maximum assist. I spoke with patient and at this time regarding discharge plans: patient is agreeable to placement ONLY at [facility]. I have spoke with Kymberly from [facility]: currently have female beds available. Patient information has been faxed to Kymberly. I will continue to follow up with: MD, patient, and Kymberly. Patient is currently ready for discharge. Original Note: I have spoke with this patient regarding discharge plans. Patient resides at home in [place] with her : was present at time of my visit. I explained discharge options of discharging to placement vs home with home health. Patient and have stated they would prefer to discharge home with home health services. I informed patient that at this time PT is recommending placement but I will follow up with patient after second PT appointment this afternoon. I will further discuss placement vs home health. Discharge date is unknown at this time.
[2020-08-21 12:18] LABS: POC Glucose,Bedside 255 (70-110)
[2020-08-21 14:50] VITALS: BMI 31.6
[2020-08-21 16:00] VITALS: BP 156/71; PULSE 68; RESP 22; TEMP 37; O2SAT 99
--- NOTE | 2020-08-21 16:33 | PC.NURSE ---
SAMINA FROM [facility] AT BEDSIDE AT THIS TIME.
[2020-08-21 17:12] LABS: POC Glucose,Bedside 216 (70-110)
--- NOTE | 2020-08-21 17:20 | HMH.ORTHPN ---
Subjective Date: 08/21/20 Time: 16:45 Principal diagnosis: Nondisplaced fracture patella, left knee Interval history: Patient is lying down in bed and says is doing well. Patient has left knee pain and says it's well-controlled with as needed medication. No history of any nausea or vomiting. No history of any cough, chest pain, shortness of breath or palpitations. Patient says she is eating and drinking well. No history of any distal tingling or numbness. She says she got out of bed with the help of physical therapy. PN: Obj Ex Vital signs: Temp Pulse Resp BP Pulse Ox 98.6 F 83 20 150/66 H 96 08/21/20 08:00 08/21/20 08:00 08/21/20 08:00 08/21/20 08:00 08/21/20 08:00 Narrative: Laboratory Results - last 24 hr 08/20/20 21:31: POC Glucose 184 H 08/21/20 05:37: POC Glucose 146 H 08/21/20 11:15: POC Glucose 255 H 08/21/20 16:40: POC Glucose 216 H Exam General appearance: alert, active, awake, no acute distress Cardiovascular: regular rate & rhythm, normal peripheral pulses Respiratory: No respiratory distress noted, speaks in full sentences ABD: soft and non tender Neuro: alert, awake, oriented x 3 Psych: Appropriate mood and affect for situation On examination of the left knee/lower extremity, the skin is intact. The left knee is in a knee immobilizer. There is diffuse swelling around the knee and 1+ knee effusion present; patient has tenderness over anterior knee/patella. Knee range of movements not tested due to known underlying patella fracture. Patient is barely able to actively straight leg raise but there is extension lag. Knee joint is stable to varus and valgus stress. Thigh and calf are soft and nontender. Distal pulses are 2+ bilaterally; capillary refill is brisk. Sensation is intact to light touch throughout. Progress Note: A&P (1) Obesity (BMI 30.0-34.9) Status: Acute (2) Fall Status: Acute (3) Patellar fracture Status: Acute (4) Renal insufficiency Status: Acute (5) Rupture of left patellar tendon Status: Acute (6) Degenerative disc disease Status: Chronic (7) Diabetes Status: Acute (8) Anemia Status: Acute Assessment and Plan for All Diagnoses:: I have reviewed the clinical findings and progress with the patient and her . Recommend continuation of Concerta management and immobilization with a knee immobilizer which she seems to be tolerating well. She can weight-bear as tolerated with the brace and the knee in full extension. I have again told her that she should wear the brace continuously /. I have also advised rest, activity modification, elevation, regular icing, use of crutches or other walking aids as appropriate and simple pain medication as needed. She can mobilize weightbearing with the knee brace and also start static quadriceps strengthening exercises as able with the brace. All the questions were answered and the patient verbalized a good understanding. From an orthopedic standpoint, patient can be discharged when medically appropriate. Follow-up in my office in 7 to 10 days time with check x-ray left knee. Continue medical management as per Dr. Ca.
--- NOTE | 2020-08-21 19:18 | PC.NURSE ---
REPORT RECEIVED FROM Tami GUDINO RN
--- NOTE | 2020-08-21 19:18 | PC.NURSE ---
report given to Deb Flores RN.
[2020-08-21 20:00] VITALS: BP 148/72; PULSE 70; RESP 20; TEMP 36.9; O2SAT 98
[2020-08-21 20:20] VITALS: O2SAT 97
--- NOTE | 2020-08-21 22:19 | HMH.ACPN2 ---
Internal Medicine - PN: Subj *Date: 08/22/20 *Time: 12:33 Interval history: doing better - still with sig pain and has lt knee in splint Exam Vital signs and Labs for Last 24 Hours: Temp Pulse Resp BP Pulse Ox 98.4 F 70 20 148/72 H 97 08/21/20 20:00 08/21/20 20:00 08/21/20 20:00 08/21/20 20:00 08/21/20 20:20 Laboratory Results - last 24 hr 08/20/20 21:31: POC Glucose 184 H 08/21/20 05:37: POC Glucose 146 H 08/21/20 11:15: POC Glucose 255 H 08/21/20 16:40: POC Glucose 216 H I & O for Last 24 hours: Intake & Output 08/19/20 08/20/20 08/21/20 08/22/20 11:59 11:59 11:59 11:59 Intake Total 1000 / 1000 720 / 720 360 / 360 Output Total 425 / 425 250 / 250 200 / 200 Balance 575 / 575 470 / 470 160 / 160 Weight 161 lb 6 oz 160 lb 14.999 oz - Constitutional no acute distress - *Routine HEENT Exam Head: Present: normocephalic Eye: Present: EOMI, PERRL ENT: Present: mucous membranes dry - *Routine Neck Exam Absent: JVD - *Routine Respiratory Exam Present: CTA bilaterally - *Routine Cardiovascular Exam Present: RRR - *Routine Abdominal Exam Present: soft - *Routine Extremities Exam Comments: has knee splint - *Routine Skin Exam Present: intact - *Routine Neurological Exam Present: alert, CN II-XII intact - Routine Psychiatric Exam Present: normal affect Assessment and Plan (1) Obesity (BMI 30.0-34.9) Status: Acute Category: Medical Code(s): E66.9 - Obesity, unspecified (2) Fall Status: Acute Qualifiers: Encounter type: initial encounter Qualified Code(s): W19.XXXA - Unspecified fall, initial encounter Category: Medical Code(s): W19.XXXA - Unspecified fall, initial encounter (3) Patellar fracture Status: Acute Qualifiers: Encounter type: initial encounter Fracture type: closed Fracture morphology: comminuted Fracture alignment: nondisplaced Laterality: left Qualified Code(s): S82.045A - Nondisplaced comminuted fracture of left patella, initial encounter for closed fracture Category: Medical Code(s): S82.009A - Unspecified fracture of unspecified patella, initial encounter for closed fracture (4) Renal insufficiency Status: Acute Category: Medical Code(s): N28.9 - Disorder of kidney and ureter, unspecified (5) Rupture of left patellar tendon Status: Acute Qualifiers: Encounter type: initial encounter Qualified Code(s): S86.812A - Strain of other muscle(s) and tendon(s) at lower leg level, left leg, initial encounter Category: Medical Code(s): S86.812A - Strain of other muscle(s) and tendon(s) at lower leg level, left leg, initial encounter (6) Degenerative disc disease Status: Chronic Qualifiers: Spinal region: lumbar Qualified Code(s): M51.36 - Other intervertebral disc degeneration, lumbar region Category: Medical (7) Diabetes Status: Acute Qualifiers: Diabetes mellitus type: type 2 Diabetes mellitus senior care insulin use: unspecified senior care insulin use status Diabetes mellitus complication status: with other specified complication Qualified Code(s): E11.69 - Type 2 diabetes mellitus with other specified complication Category: Medical Code(s): E11.9 - Type 2 diabetes mellitus without complications (8) Anemia Status: Acute Qualifiers: Anemia type: unspecified type Qualified Code(s): D64.9 - Anemia, unspecified Category: Medical Code(s): D64.9 - Anemia, unspecified
--- NOTE | 2020-08-22 02:00 | PC.NURSE ---
pt assisted onto bedpan at this time. was able to void without difficulty
[2020-08-22 04:00] VITALS: BP 163/69; PULSE 90; RESP 20; TEMP 37.3; O2SAT 96
--- NOTE | 2020-08-22 04:00 | PC.NURSE ---
PATIENT HAS DONE WELL THIS SHIFT WITH NO ACUTE CHANGES. PAIN WELL CONTROLLED WITH PRN PAIN MEDICATION PER JUL. PT IS A&O X4. VSS, LUNGS CTAB, BOWELS ACTIVE IN ALL QUADRANTS. PT HAS VOIDED VIA BEDPAN AND X1 ASSIST. LT LEG REMAINS IN IMMOBILIZER.
--- NOTE | 2020-08-22 07:06 | PC.NURSE ---
report given to rosanna gurrola rn
[2020-08-22 08:00] VITALS: BP 151/67; PULSE 74; RESP 20; TEMP 37; O2SAT 95
--- NOTE | 2020-08-22 08:30 | PC.NURSE ---
PT ASSESSED AT THIS TIME. BILATERAL LUNG SOUNDS CLEAR. BOWEL SOUNDS PRESENT AND ACTIVE. BRUISING AND SWELLING NOTED TO L KNEE. BRUISING NOTED TO CHIN, NOSE AND BILATERAL EYES. PT STATES SHE IS PASSING GAS. IMMOBLIZER IN PLACE. WILL CONTINUE TO OBSERVE.
--- NOTE | 2020-08-22 08:56 | HMH.DCSUM ---
General - General Admission date:: 08/20/20 Discharge date: 08/22/20 HPI HPI: this pt was walking into office and tripped - fell face forward and was seen in the ed - Patient states that she was moving things around when her right foot accidentally cut the lip end of a box causing her to fall. Patient states that she did not try to extend her hands and hit the ground face first. She states that she also hit both of her knees and that she was unable to get up on her own. She states that she was helped up onto a chair. Patient denies losing consciousness and is not on blood thinners. Denies any fevers, chills, nausea, vomiting, chest pain, huang pain, numbness, tingling, weakness. (Vandana Murry) pt was noted to have fx lt patella and disrupted ext mech and had lt hip pain w/o fracture and unable to ambulate - pt was admitted for treatment and eval Hospital Course Hospital Course: Patient is a 74-year-old female admitted to hospital from ER for management of left patella fracture. Patient states that she fell down after tripping over a box at home yesterday. She says she fell forwards facedown hitting her both knees on the ground. She says she was unable to get up or walk afterwards. After she was brought to the ER, extensive evaluation was performed and only significant injury was noted to be a nondisplaced left patella fracture. The left knee was placed in a knee immobilizer and patient was admitted to the hospital. Denies any fevers, chills, nausea, vomiting, chest pain, abdominal pain, numbness, tingling, weakness. She reports chronic low back pain and has been under pain management for injections. She also reports some chronic bilateral knee pain prior to this fall. Admission labs: H/H 10.5/35.9, BUN 31, creatinine 1.5, GFR 34 UA negative 08/19/20 cervical spine/head/face CT all revealed no acute findings 08/19/2020 chest x-ray revealed no acute findings 08/19/2020 Bilateral shoulder x-rays reveal no acute findings 08/19/20 L Patella XR: IMPRESSION: Nondisplaced patellar fracture, grossly negative left femur Dictated by: Marilyn, 08/19/20 L Knee XR: IMPRESSION: Diffuse soft tissue swelling medially consistent with contusion in addition to what appears to be nondisplaced incomplete fracture of the mid patella associated with prominent effusion in the suprapatellar bursa Dictated by: Marilyn, 08/20/[address]: FINDINGS: There is a nondisplaced comminuted fracture involving the patella. Hyperdense knee joint effusion is present consistent with hemarthrosis. Osteoarthritic changes are involving all 3 compartments including the patellofemoral joint. There is no evidence dislocation. There is diffuse vascular calcification. Diffuse osteopenia also noted. Capsular calcification noted on the posterior aspect of the medial compartment. There is a small Vaz's cyst. Mild prepatellar edema. Mild soft tissue swelling involves the subcutaneous tissues of the calf medially and posteriorly at the popliteal fossa region IMPRESSION: Comminuted nondisplaced fracture of the patella with hemarthrosis and osteoarthritis Dictated by: Jessica Vargas has seen and recommends: I have reviewed the clinical findings and progress with the patient and her . Recommend continuation of Concerta management and immobilization with a knee immobilizer which she seems to be tolerating well. She can weight-bear as tolerated with the brace and the knee in full extension. I have again told her that she should wear the brace continuously 09/12. I have also advised rest, activity modification, elevation, regular icing, use of crutches or other walking aids as appropriate and simple pain medication as needed. She can mobilize weightbearing with the knee brace and also start static quadriceps strengthening exercises as able with the brace. All the questions were answered and the patient verb
--- NOTE | 2020-08-22 09:30 | PC.NURSE ---
PT ASSISTED ONTO BEDPAN X1 ASSIST AT THIS TIME. RN LOOKED FOR A GAIT BELT TO HELP TRANSFER PT TO BEDSIDE HOWEVER WASNT ABLE TO GET ONE FAST ENOUGH AND PT WASNT ABLE TO HOLD BLADDER. PT HAS URGE INCONTINENCE. PT ASSISTED ON BEDSIDE TO FINISH. LINENS CHANGED AND BREIF APPLIED PER PT REQUEST.
--- NOTE | 2020-08-22 10:40 | PC.NURSE ---
REPORT CALLED TO LAURENCE DARDEN @ [facility].
--- NOTE | 2020-08-22 11:20 | PC.NURSE ---
[facility] CALLED TO TRANSFER PT AT THIS TIME. STATES BE THERE TO MANAGER FLORAL AROUND 1300.
[2020-08-22 11:45] LABS: POC Glucose,Bedside 175 (70-110)
[2020-08-22 11:45] LABS: POC Glucose,Bedside 252 (70-110)
[2020-08-22 11:45] LABS: POC Glucose,Bedside 289 (70-110)
--- NOTE | 2020-08-22 11:45 | PC.NURSE ---
PT GIVEN BED BATH AT THIS TIME AND CLOTHES CHANGED. IV DC'D PT TOLERATED WELL.
[2020-08-22 18:20] LABS: Peripheral Smear Review Scanned Result
== END 2020-08-22 13:30 ==
LOC: ER 23:59 → 2ND 08-20 00:20 → OB 08-21 06:09 → 2ND 08-21 06:10
PROVIDERS: Admitting Provider Emergency Medicine; Emergency Provider Emergency Medicine; PCP Internal Medicine; Visit Provider Emergency Medicine
DX: S82.045A Nondisplaced comminuted fracture of left patella, initial encounter for closed fracture (principal); W01.0XXA Fall on same level from slipping, tripping and stumbling without subsequent striking against object, initial encounter; Y92.019 Unspecified place in single-family (private) house as the place of occurrence of the external cause; E11.9 Type 2 diabetes mellitus without complications; K21.9 Gastro-esophageal reflux disease without esophagitis; K44.9 Diaphragmatic hernia without obstruction or gangrene; D64.9 Anemia, unspecified; I48.91 Unspecified atrial fibrillation; I10 Essential (primary) hypertension; E78.5 Hyperlipidemia, unspecified; Z79.4 Long term (current) use of insulin; Z79.899 Other long term (current) drug therapy; Z79.51 Long term (current) use of inhaled steroids; M51.36 Other intervertebral disc degeneration, lumbar region
CPT/HCPCS: 29505; 36415; 70450; 70486; 71045; 72125; 72128; 72170; 72192; 73030; 73552; 73562; 73700; 80048; 80053; 81001; 82962; 83735; 85025; 96365; 96375; 97162; 97530; 99284; G0378; J2405; U0003

== ENCOUNTER → 2020-08-29 08:41 | Outpatient (CLI) | payer MEDICARE, SELFPAY | PROVIDERS: PCP Internal Medicine; Visit Provider Orthopaedic Surgery | DX: M25.561 Pain in right knee (principal) | CPT/HCPCS: 73562 ==

== ENCOUNTER → 2020-09-26 09:04 | Outpatient (CLI) | payer MEDICARE, SELFPAY ==
--- NOTE | 2020-09-26 09:10 | XR_ITS ---
PROCEDURE: XR KNEE LT 2V CLINICAL INDICATION: left patella fx follow up; out of brace COMPARISON: CR XR KNEE RT 3V from 08/19/2020 CR XR KNEE LT 3V from 08/19/2020 CR XR KNEE LT 3V from 08/29/2020 FINDINGS: Fracture of the patella is again noted. Again noted mildly distracted fracture fragments. No other acute fractures or dislocations. Bone density is normal. No suprapatellar joint effusion. Vascular calcification is noted. Degenerative changes of the knee joint are noted, worse in the patellofemoral compartment with subchondral sclerosis and loss of joint space. Tricompartmental osteophyte formation is noted, worse in the medial compartment. Mild medial compartment joint space loss. IMPRESSION: Patellar fracture is again noted, demonstrates no significant interval change. Tricompartmental degenerative changes. Dictated by: Chen Diaz 09/26/2020 11:27 Chen Diaz in [place] 09/26/2020 11:27
== END ==
PROVIDERS: PCP Internal Medicine; Visit Provider Orthopaedic Surgery
DX: S82.009A Unspecified fracture of unspecified patella, initial encounter for closed fracture (principal)
CPT/HCPCS: 73560

== ENCOUNTER 2020-09-26 10:50 | Outpatient (RCR) | payer MEDICARE, SELFPAY | END 2020-09-26 11:32 | disposition home or self-care (01) | LOC: PT 10:50 | PROVIDERS: Visit Provider Orthopaedic Surgery | DX: S82.045A Nondisplaced comminuted fracture of left patella, initial encounter for closed fracture (principal) | CPT/HCPCS: 97760 ==

== ENCOUNTER → 2020-11-07 08:53 | Outpatient (CLI) | payer MEDICARE, SELFPAY ==
--- NOTE | 2020-11-07 09:01 | XR_ITS ---
PROCEDURE: XR KNEE LT 2V CLINICAL INDICATION: left patella fx COMPARISON: CR XR KNEE RT 3V from 08/19/2020 CR XR KNEE LT 3V from 08/19/2020 CR XR KNEE LT 3V from 08/29/2020 CR XR KNEE LT 2V from 09/26/2020 FINDINGS: The patellar fracture line is barely perceptible. There is good alignment. Osteoarthritic changes are present involving all 3 compartments greatest at the patellofemoral joint and medial compartment. There is a small suprapatellar effusion. There is diffuse vascular calcification. Other findings:None. IMPRESSION: Good alignment healing patellar fracture. Osteoarthritis with knee joint effusion Dictated by: Bean Vargas MD 11/07/2020 09:23 Bean Vargas MD in [facility] 11/07/2020 09:23
== END ==
PROVIDERS: PCP Internal Medicine; Visit Provider Orthopaedic Surgery
DX: S82.009A Unspecified fracture of unspecified patella, initial encounter for closed fracture (principal)
CPT/HCPCS: 73560

== ENCOUNTER → 2020-11-14 14:38 | Outpatient (CLI) | payer MEDICARE, SELFPAY ==
[2020-11-14 14:47] LABS: Microscopic, Urine URINE MICROSCOPIC (MICROSCOPIC)
[2020-11-14 15:16] LABS: Basophils # 0.1 K/mm3 (0-0.2); Basophils % 0.9 % (0.1-2.0); Eosinophils # 0.3 K/mm3 (0.0-0.4); Eosinophils % 2.6 % (0.1-12.0); Hematocrit 37.7 % (37.0-47.0); Hemoglobin 11.8 g/dL (12.2-16.2); Lymphocytes # 1.4 K/mm3 (0.7-4.5); Lymphocytes % 13.7 % (10-50); Mean Corpuscular HGB Conc 31.3 g/dL (31.8-35.4); Mean Corpuscular Hemoglobin 31.8 pg (27.0-31.2); Mean Corpuscular Volume 101.5 fl (81-99); Monocytes # 0.4 K/mm3 (0.1-1.0); Monocytes % 3.6 % (1.7-9.3); Neutrophils # 7.8 K/mm3 (1.8-7.8); Neutrophils % 79.2 % (37.0-80.0); Platelet Count 227 K/mm3 (142-424); Red Blood Count 3.71 M/mm3 (4.20-5.40); Red Cell Distribution Width 18.4 % (11.5-17.5); White Blood Count 9.9 K/mm3 (4.8-10.8)
[2020-11-14 15:52] LABS: Appearance,Urine CLEAR (Clear); Bilirubin,Urine Negative (Negative); Blood, Urine Negative (Negative); Color,Urine YELLOW (Yellow); Glucose,Urine (UA) Negative (Negative); Ketones,Urine TRACE (Negative); Leukocyte Esterase,Urine TRACE (Negative); Nitrate,Urine Negative (Negative); PH,Urine 5.5 (5.0-8.5); Protein,Urine 1+ (Negative); Specific Gravity, Urine >= 1.030 (1.005-1.030); Urobilinogen,Urine 0.2 EU/dl (0.2)
[2020-11-14 16:00] LABS: Bacteria,Urine Trace /lpf; RBC,Urine Occasional #/hpf (0-3); WBC,Urine Occasional #/hpf (0-3)
[2020-11-14 16:02] LABS: Albumin Level 3.8 g/dl (3.5-5.0); Blood Urea Nitrogen 18 mg/dl (7-17); Calcium 9.5 mg/dl (8.4-10.2); Carbon Dioxide 28 mmol/L (22.0-30.0); Chloride 102 mmol/L (98-107); Estimated Glomerular Filt Rate 48 ml/min (>60); GFR (African American) 58 ML/MIN (>60); Glucose 310 mg/dl (74-100); Phosphorous 4.2 mg/dl (2.5-4.5); Sodium 140 mmol/L (136-145)
[2020-11-14 16:03] LABS: Creatinine,Urine Random 167 mg/dL (Not Estab.)
[2020-11-14 16:16] LABS: Total Iron Binding Capacity 222 ug/dL (265-497)
[2020-11-14 16:19] LABS: 25-OH Vitamin D, Total 60.7 ng/mL (30-100)
[2020-11-14 17:14] LABS: Vitamin B12 > 1000 pg/mL (239-931)
[2020-11-14 17:46] LABS: Folate > 20.00 ng/mL
[2020-11-14 18:44] LABS: Ferritin 62.9 ng/ml (11.1-264)
== END ==
PROVIDERS: Visit Provider Internal Medicine Nephrology
DX: N18.30 Chronic kidney disease, stage 3 unspecified (principal); N18.4 Chronic kidney disease, stage 4 (severe); D63.1 Anemia in chronic kidney disease
CPT/HCPCS: 36415; 80069; 81001; 82306; 82570; 82607; 82728; 82746; 83550; 84155; 85025

== ENCOUNTER → 2020-11-16 12:42 | Outpatient (POV) | payer MEDICARE, SELFPAY | PROVIDERS: Visit Provider Internal Medicine Nephrology | DX: Z00.00 Encounter for general adult medical examination without abnormal findings (principal) ==

== ENCOUNTER → 2021-01-19 18:00 | Outpatient (CLI) | payer MEDICARE, SELFPAY ==
[2021-01-19 18:32] LABS: Basophils # 0.1 K/mm3 (0-0.2); Basophils % 0.7 % (0.1-2.0); Eosinophils # 0.3 K/mm3 (0.0-0.4); Eosinophils % 3.5 % (0.1-12.0); Hematocrit 37.7 % (37.0-47.0); Hemoglobin 11.2 g/dL (12.2-16.2); Lymphocytes # 1.1 K/mm3 (0.7-4.5); Lymphocytes % 12.8 % (10-50); Mean Corpuscular HGB Conc 29.7 g/dL (31.8-35.4); Mean Corpuscular Hemoglobin 32.9 pg (27.0-31.2); Mean Corpuscular Volume 110.7 fl (81-99); Mean Platelet Volume 11.1 fl (7.4-10.4); Monocytes # 0.4 K/mm3 (0.1-1.0); Monocytes % 4.1 % (1.7-9.3); Neutrophils # 6.9 K/mm3 (1.8-7.8); Neutrophils % 78.8 % (37.0-80.0); Platelet Count 235 K/mm3 (142-424); Red Cell Distribution Width 15.8 % (11.5-17.5); White Blood Count 8.7 K/mm3 (4.8-10.8)
[2021-01-19 19:05] LABS: Chloride 101 mmol/L (98-107); Potassium 5.2 mmoL/L (3.5-5.1); Sodium 140 mmol/L (136-145)
[2021-01-19 19:08] LABS: Alanine Aminotransferase 9 U/L (12-78); Albumin Level 3.6 g/dl (3.5-5.0); Albumin/Globulin Ratio 1.4 (1.1-1.8); Alkaline Phosphatase 82 U/L (38-126); Anion Gap 16.2 mEq/L (5-15); Aspartate Amino Transferase 23 U/L (14-36); Bilirubin,Total 0.2 mg/dl (0.2-1.3); Blood Urea Nitrogen 33 mg/dl (7-17); Carbon Dioxide 28 mmol/L (22.0-30.0); Cholesterol 117 mg/dl (140-200); Estimated Glomerular Filt Rate 40 ml/min (>60); GFR (African American) 48 ML/MIN (>60); Globulin 2.6 g/dL (1.3-3.2); Total Protein,Serum 6.2 g/dl (6.3-8.2); Triglycerides 131 mg/dl (30-150); VLDL Cholesterol 26 mg/dL (0-40)
[2021-01-19 19:09] LABS: Calcium 9.5 mg/dl (8.4-10.2); Glucose 334 mg/dl (74-100); HDL Cholesterol 43 mg/dl (40-60)
[2021-01-19 19:20] LABS: Direct LDL Cholesterol 48.85 mg/dL (100-129)
[2021-01-19 19:56] LABS: Hemoglobin A1C 9.4 % (4.0-6.0)
[2021-01-19 20:42] LABS: Chol/HDL Ratio 2.7 (1-3.5)
== END ==
PROVIDERS: Visit Provider Internal Medicine
DX: E11.42 Type 2 diabetes mellitus with diabetic polyneuropathy (principal); E11.59 Type 2 diabetes mellitus with other circulatory complications; I50.22 Chronic systolic (congestive) heart failure; I48.91 Unspecified atrial fibrillation; I34.0 Nonrheumatic mitral (valve) insufficiency; E53.8 Deficiency of other specified B group vitamins
CPT/HCPCS: 80053; 80061; 83036; 85025

== ENCOUNTER 2021-05-17 17:27 | Emergency (ER) | payer MEDICARE, SELFPAY ==
[2021-05-17 17:27] VITALS: BP 141/65; PULSE 56; RESP 18; O2SAT 95; BMI 31.2
--- NOTE | 2021-05-17 17:35 | CT_ITS ---
PROCEDURE INFORMATION: Exam: CT Head Without Contrast Exam date and time: 05/17/2021 5:35 PM Age: 75 years old Clinical indication: Altered mental status/memory loss; Additional info: AMS TECHNIQUE: Imaging protocol: Computed tomography of the head without contrast. Radiation optimization: All CT scans at this facility use at least one of these dose optimization techniques: automated exposure control; mA and/or kV adjustment per patient size (includes targeted exams where dose is matched to clinical indication); or iterative reconstruction. COMPARISON: CT HEAD/BRAIN WO CON 08/19/2020 8:49 PM FINDINGS: Brain: No mass effect. No hemorrhage. Unchanged moderate chronic white matter hypoattenuation. Chronic appearing encephalomalacia in the left frontal lobe, but new since August. Cerebral ventricles: No ventriculomegaly. Paranasal sinuses: Visualized sinuses are unremarkable. No fluid levels. Mastoid air cells: Visualized mastoid air cells are well aerated. Bones/joints: Unremarkable. No acute fracture. Soft tissues: Unremarkable. IMPRESSION: No acute intracranial abnormality.
[2021-05-17 17:45] LABS: Basophils # 0.1 K/mm3 (0-0.2); Basophils % 0.8 % (0.1-2.0); Eosinophils # 0.1 K/mm3 (0.0-0.4); Eosinophils % 0.8 % (0.1-12.0); Hematocrit 38.1 % (37.0-47.0); Hemoglobin 11.6 g/dL (12.2-16.2); Lymphocytes # 0.5 K/mm3 (0.7-4.5); Lymphocytes % 3.8 % (10-50); Mean Corpuscular HGB Conc 30.5 g/dL (31.8-35.4); Mean Corpuscular Hemoglobin 33.2 pg (27.0-31.2); Mean Corpuscular Volume 109.1 fl (81-99); Mean Platelet Volume 9.6 fl (7.4-10.4); Monocytes # 0.3 K/mm3 (0.1-1.0); Monocytes % 2.1 % (1.7-9.3); Neutrophils # 12.9 K/mm3 (1.8-7.8); Neutrophils % 92.5 % (37.0-80.0); Platelet Count 183 K/mm3 (142-424); Red Blood Count 3.49 M/mm3 (4.20-5.40); Red Cell Distribution Width 17.6 % (11.5-17.5); White Blood Count 13.9 K/mm3 (4.8-10.8)
[2021-05-17 17:48] LABS: MANUAL DIFFERENTIAL MANUAL DIFFERENTIAL (MANUAL DIFF)
[2021-05-17 17:53] LABS: Chloride 98 mmol/L (98-107); Sodium 136 mmol/L (136-145)
[2021-05-17 17:54] LABS: Potassium 4.3 mmoL/L (3.5-5.1)
[2021-05-17 17:56] LABS: Alanine Aminotransferase 15 U/L (12-78); Albumin/Globulin Ratio 1.4 (1.1-1.8); Alkaline Phosphatase 68 U/L (38-126); Anion Gap 12.3 mEq/L (5-15); Aspartate Amino Transferase 39 U/L (14-36); Bilirubin,Total 0.4 mg/dl (0.2-1.3); Blood Urea Nitrogen 33 mg/dl (7-17); Calcium 9.8 mg/dl (8.4-10.2); Carbon Dioxide 30 mmol/L (22.0-30.0); Creatinine Clearance Estimated 39 mL/min (50-200); Estimated Glomerular Filt Rate 37 ml/min (>60); GFR (African American) 44 ML/MIN (>60); Globulin 2.9 g/dL (1.3-3.2); Glucose 154 mg/dl (74-100); Total Protein,Serum 6.9 g/dl (6.3-8.2)
[2021-05-17 17:57] LABS: Magnesium 1.5 mg/dl (1.6-2.3)
[2021-05-17 18:06] LABS: Lymphocytes % 5 % (10-50); Monocytes % 3 % (2-9); Neutrophils % 90 % (42-76); Platelet Estimate Normal; Total Cells Counted 100
[2021-05-17 18:07] LABS: Hypochromasia 2+; Macrocytosis 2+
--- NOTE | 2021-05-17 19:05 | HMH.EDWEAK ---
ED Disposition Clinical Impression: Confusion Disposition: Home, Self-Care Condition on Discharge: Good Instructions: Delirium Additional Instructions: Please follow up with your primary care physician in 2-3 days for further management. Please discuss with your primary care team your heart rate. Please return back to emergency department if worsening symptoms such as dizziness, lightheadedness, chest pain, difficulty breathing, or any other concerning symptoms. Referrals: Andrea Benton [Primary Care Provider] - Time of Disposition: 19:50 - Critical Care Critical Care Time: No Attestation: On 05/17/21, the high probability of a clinically significant, sudden or life threatening deterioration of the following system(s) required my full and direct attention, intervention and personal management. The time I documented below is in addition to time spent performing reported procedures but includes the following listed in this critical care notation. Medical Decision Making - Medical Records Medical records reviewed: Yes: I reviewed the patient's medical records. - [place] Inquiry Pt receiving controlled substance: No Vital Signs: 05/17/21 17:27 05/17/21 19:49 Temperature 98.7 F Pulse Rate 48 L Pulse Rate [Right Radial] 56 L Respiratory Rate 18 16 Blood Pressure 121/57 L Blood Pressure [Right Arm] 141/65 H Blood Pressure Mean [Right Arm] 90 Blood Pressure Source [Right Arm] Automatic Cuff Blood Pressure Position [Right Arm] Supine 02 Sat by Pulse Oximetry 95 Oxygen Delivery Method Room Air Room Air - Lab Data Lab results reviewed: Yes: I reviewed the patient's lab results. Lab Results 05/17/21 17:26: WBC 13.9 H, RBC 3.49 L, Hgb 11.6 L, Hct 38.1, MCV 109.1 H, MCH 33.2 H, MCHC 30.5 L, RDW 17.6 H, Plt Count 183, MPV 9.6, Neut % (Auto) 92.5 H, Lymph % (Auto) 3.8 L, Dolores % (Auto) 2.1, Eos % (Auto) 0.8, Baso % (Auto) 0.8, Neut # (Auto) 12.9 H, Lymph # (Auto) 0.5 L, Dolores # (Auto) 0.3, Eos # (Auto) 0.1, Baso # (Auto) 0.1, Total Counted 100, Neutrophils % (Manual) 90 H, Band Neutrophils % 2.0, Lymphocytes % (Manual) 5 L, Monocytes % (Manual) 3, Platelet Estimate Normal, Hypochromasia 2+, Macrocytosis 2+ 05/17/21 17:26: Sodium 136, Potassium 4.3, Chloride 98, Carbon Dioxide 30, Anion Gap 12.3, BUN 33 H, Creatinine 1.40 H, Estimated Creat Clear 39, Estimated GFR 37 L, Est GFR ( Amer) 44 L, Glucose 154 H, Calcium 9.8, Magnesium 1.5 L, Total Bilirubin 0.4, AST 39 H, ALT 15, Alkaline Phosphatase 68, Total Protein 6.9, Albumin 4.0, Globulin 2.9, Albumin/Globulin Ratio 1.4 Result diagrams: 05/17/21 17:26 05/17/21 17:26 Medical Decision Narrative: Miss Mckinnon is a 75 yo female w/ PMH for afib (on BB), bradycardia, T2DM who presents to the ED for period of confusion yesterday which has since resolved. Patient is afebrile and hemodynamically stable on arrival. She denies any infectious symptoms. Patient reports she is in normal state of health and feel fine . Patient is alert and oriented x3. Physical exam benign. Patient denies any dizziness, lightheadness, focal deficits, chest pain, dyspnea or any other concerning symptoms. Differentials to consider but not limited to include: infectious however unlikely in setting of no symptoms, metabolic/electrolyte derangement, acute intracranial process, medication/polypharmacy. Sugar normal on arrival. Basic labs, CT head are obtained for evaluation, results are non actionable. Patient is monitored in ED and remains alert and oriented x3 w/ no concerning symptoms on routine evaluation. Patient is instructed to fu w/ her pcp in 2-3 days for further management and to return if symptoms reoccur. Patient discharged in stable condition. Weakness HPI - General Chief complaint: Weakness Stated complaint: weakness/ confusion Time Seen by Provider: 05/17/21 17:30 Mode of Arrival: Ambulatory Limitations: No Limitations Description of Symptoms (Recalled from ER Triage Doc. by RN):
[2021-05-17 19:49] VITALS: BP 121/57; PULSE 48; RESP 16; TEMP 37.1; O2SAT 97
== END 2021-05-17 19:51 | disposition home or self-care (01) ==
PROVIDERS: Emergency Provider Student in an Organized Health Care Education/Training Program; PCP Internal Medicine
DX: R41.0 Disorientation, unspecified (principal); I48.91 Unspecified atrial fibrillation; F03.90 Unspecified dementia, unspecified severity, without behavioral disturbance, psychotic disturbance, mood disturbance, and anxiety; E11.9 Type 2 diabetes mellitus without complications; I10 Essential (primary) hypertension; E78.5 Hyperlipidemia, unspecified; K21.9 Gastro-esophageal reflux disease without esophagitis
CPT/HCPCS: 70450; 80053; 83735; 85007; 85025; 99283

== ENCOUNTER 2021-06-17 00:54 | Emergency (ER) | payer MEDICARE, SELFPAY ==
--- NOTE | 2021-06-17 00:44 | ECG_ITS ---
APPROVED REPORT Exam: Resting ECG HR:54 bpm ECG Measurements Heart Rate 54 AXES QRSd 118 QRS -69 QT 531 T 67 QTc 517 Conclusion ATRIAL FLUTTER/TACHYCARDIA WITH SLOW VENTRICULAR RESPONSE LEFT AXIS DEVIATION [QRS AXIS < -30] PATTERN CONSISTENT WITH PULMONARY DISEASE INCOMPLETE RIGHT BUNDLE BRANCH BLOCK [90+ ms QRS DURATION, TERMINAL R IN V1/V2, 40+ ms S IN I/aVL/V4/V5/V6] SEPTAL MYOCARDIAL INFARCTION , OF INDETERMINATE AGE [40+ ms Q WAVE IN V1/V2] ABNORMAL ECG UNCONFIRMED REPORT Electronically signed by : Kehinde Cabral MD 06/18/2021 17:29:09
[2021-06-17 00:47] VITALS: PULSE 78; RESP 11; TEMP 36.8; O2SAT 95; BMI 36.6; BMI 41.1
--- NOTE | 2021-06-17 00:47 | XR_ITS ---
PROCEDURE INFORMATION: Exam: XR Chest Exam date and time: 06/17/2021 12:47 AM Age: 75 years old Clinical indication: Device placement; Ett placement (vent status); Additional info: Stroke code ett placement images TECHNIQUE: Imaging protocol: XR of the chest. Views: 1 view. COMPARISON: CR XR CHEST AP 08/19/2020 8:18 PM FINDINGS: Tubes, catheters and devices: There is an endotracheal tube identified with its tip 2.7 cm above the collin. It should be withdrawn 2 cm. Lungs: Limited inspiration. No evidence of alveolar consolidation or pulmonary vascular congestion. Pleural spaces: Unremarkable. No pleural effusion. No pneumothorax. Heart/Mediastinum: Heart size is normal. There is atheromatous calcification of the thoracic aorta. Bones/joints: Degenerative changes of the thoracic spine and shoulders. IMPRESSION: 1. Endotracheal tube has been placed with its tip 2.7 cm is above the collin. It should be withdrawn 2 cm. 2. Limited inspiration chest. No evidence of acute intrathoracic disease.
[2021-06-17 00:50] LABS: Basophils # 0.2 K/mm3 (0-0.2); Basophils % 1.9 % (0.1-2.0); Eosinophils # 0.5 K/mm3 (0.0-0.4); Eosinophils % 4.3 % (0.1-12.0); Hematocrit 40.8 % (37.0-47.0); Hemoglobin 12.7 g/dL (12.2-16.2); Lymphocytes # 3.8 K/mm3 (0.7-4.5); Lymphocytes % 34.4 % (10-50); Mean Corpuscular Volume 112.9 fl (81-99); Mean Platelet Volume 10.1 fl (7.4-10.4); Monocytes # 0.4 K/mm3 (0.1-1.0); Monocytes % 3.7 % (1.7-9.3); Neutrophils # 6.1 K/mm3 (1.8-7.8); Neutrophils % 55.7 % (37.0-80.0); Platelet Count 212 K/mm3 (142-424); Red Blood Count 3.62 M/mm3 (4.20-5.40); Red Cell Distribution Width 16.8 % (11.5-17.5); White Blood Count 10.9 K/mm3 (4.8-10.8)
[2021-06-17 00:52] LABS: Anion Gap 22.7 mEq/L (5-15); Blood Urea Nitrogen 21 mg/dl (7-17); Calcium 9.2 mg/dl (8.4-10.2); Carbon Dioxide 16 mmol/L (22.0-30.0); Chloride 106 mmol/L (98-107); Creatinine Clearance Estimated 54 mL/min (50-200); Estimated Glomerular Filt Rate 37 ml/min (>60); GFR (African American) 44 ML/MIN (>60); Glucose 320 mg/dl (74-100); Potassium 4.7 mmoL/L (3.5-5.1); Sodium 140 mmol/L (136-145)
[2021-06-17 00:53] LABS: Activated Partial Thrombo Time 28.8 seconds (22.8-30.6); INR 1.06 (0.9-1.1); Prothrombin Time 11.9 seconds (10.1-12.5)
[2021-06-17 01:00] LABS: Microscopic, Urine URINE MICROSCOPIC (MICROSCOPIC)
[2021-06-17 01:02] LABS: ABG Base Excess -16.5 mmol/L (-2.4-2.3); ABG HCO3 11.1 mmhg (22.0-26.0); ABG Oxygen Saturation 100 % (90-100); ABG PCO2 27.3 mmhg (35.0-45.0); ABG PH 7.23 mmol/L (7.35-7.45); ABG PO2 442.3 mmhg (80-100); Allen's Test UNABLE; Oxygen 100% AMBU %; Source Right Radial
[2021-06-17 01:09] LABS: Appearance,Urine SL CLOUDY (Clear); Bilirubin,Urine Negative (Negative); Blood, Urine Negative (Negative); Color,Urine YELLOW (Yellow); Glucose,Urine (UA) TRACE (Negative); Ketones,Urine Negative (Negative); Leukocyte Esterase,Urine Negative (Negative); Nitrate,Urine Negative (Negative); PH,Urine 5.5 (5.0-8.5); Protein,Urine 2+ (Negative); Specific Gravity, Urine >= 1.030 (1.005-1.030); Urobilinogen,Urine 0.2 EU/dl (0.2)
[2021-06-17 01:12] LABS: Amorphous Sediment,Urine 1+ /lpf; Mucus,Urine 2+ /lpf
[2021-06-17 01:20] LABS: Amphetamine/Metha Screen,Urine Negative ng/ml (<1000)
[2021-06-17 01:21] LABS: Barbiturates Screen,Urine Negative ng/ml (<200); Benzodiazepines Screen,Urine Negative ng/ml (<200)
[2021-06-17 01:22] LABS: Cannabinoid Screen,Urine Negative ng/ml (<50)
[2021-06-17 01:23] LABS: Cocaine Screen,Urine Negative ng/ml (<300); Methadone Screen,Urine Negative ng/ml (<300)
[2021-06-17 01:24] LABS: Opiate Screen,Urine Negative ng/ml (<300); Phencyclidine Screen,Urine Negative ng/ml (<25)
--- NOTE | 2021-06-17 01:25 | [facility].EDAMS ---
ED Disposition Clinical Impression: CVA (cerebral vascular accident) Qualifiers: CVA mechanism: unspecified Qualified Code(s): I63.9 - Cerebral infarction, unspecified Altered mental status Qualifiers: Altered mental status type: unspecified Qualified Code(s): R41.82 - Altered mental status, unspecified Disposition: Xfer Short-Term Hosp Condition on Discharge: Critical Referrals: Andrea Benton [Primary Care Provider] - - Critical Care Critical Care Time: Yes Attestation: On 06/17/21, the high probability of a clinically significant, sudden or life threatening deterioration of the following system(s) required my full and direct attention, intervention and personal management. The time I documented below is in addition to time spent performing reported procedures but includes the following listed in this critical care notation. Total Critical Care Time: 30 Vital system(s) involved:: Central Nervous System My critical care processes included: Assessment & monitoring of V/S, Initial and Re-exams, Data Review/Interpretation, Coordinating Care, Medication Orders and management, Documentation Medical Decision Making - Medical Records Medical records reviewed: Yes: I reviewed the patient's medical records. - [place] Inquiry Pt receiving controlled substance: No Vital Signs: 06/17/21 00:47 Temperature 98.3 F Temperature Source Rectal Pulse Rate [Apical] 78 Respiratory Rate 14 Blood Pressure [Right Arm] 120/78 Blood Pressure Mean [Right Arm] 92 Blood Pressure Source [Right Arm] Manual Cuff/ Auscultation Blood Pressure Position [Right Arm] Supine 02 Sat by Pulse Oximetry 95 Oxygen Delivery Method Room Air - Lab Data Lab results reviewed: Yes: I reviewed the patient's lab results. Lab Results 06/17/21 00:32: WBC 10.9 H, RBC 3.62 L, Hgb 12.7, Hct 40.8, MCV 112.9 H, MCH 35.0 H, MCHC 31.0 L, RDW 16.8, Plt Count 212, MPV 10.1, Neut % (Auto) 55.7, Lymph % (Auto) 34.4, Hockley % (Auto) 3.7, Eos % (Auto) 4.3, Baso % (Auto) 1.9, Neut # (Auto) 6.1, Lymph # (Auto) 3.8, Hockley # (Auto) 0.4, Eos # (Auto) 0.5 H, Baso # (Auto) 0.2 01/30/22 00:32: Sodium 140, Potassium 4.7, Chloride 106, Carbon Dioxide 16 L, Anion Gap 22.7 H, BUN 21 H, Creatinine 1.40 H, Estimated Creat Clear 54, Estimated GFR 37 L, Est GFR ( Amer) 44 L, Glucose 320 H, Calcium 9.2 06/17/21 00:32: PT 11.9, INR 1.06, APTT 28.8 06/17/21 00:41: Urine Color Yellow, Urine Appearance Sl cloudy, Urine pH 5.5, Ur Specific Manquin >= 1.030, Urine Protein 2+, Urine Glucose (UA) Trace, Urine Ketones Negative, Urine Blood Negative, Urine Nitrate Negative, Urine Bilirubin Negative, Urine Urobilinogen 0.2, Ur Leukocyte Esterase Negative, Urine WBC 3-5, Ur Squamous Epith Cells 10-20, Ur Renal Epithelial Cell 3-5, Amorphous Sediment 1+, Urine Mucus 2+ 06/17/21 12:25: Specimen Source Right radial, O2 % 100% ambu, ABG pH 7.23 L*, ABG pCO2 27.3 L, ABG pO2 442.3 H, ABG HCO3 11.1 L, ABG Total CO2 12.0 L, ABG O2 Saturation 100, ABG Base Excess -16.5 L, Bean Test Unable Result diagrams: 06/17/21 00:32 06/17/21 00:32 Orders (Tests/Meds): ED MEDICATIONS Discontinued Medications Generic Name Dose Route Start Last Admin Trade Name Freq PRN Reason Stop Dose Admin Levetiracetam 2,000 mg/ Sodium 120 mls @ 240 mls/hr 06/17/21 01:10 Chloride IV 06/17/21 01:11 ONCE ONE Midazolam HCl 2 mg 06/17/21 01:10 Midazolam 2mg/2ml Vial IV 06/17/21 01:11 ONCE ONE ORDERS Category Date Time Status Chest XR -- portable [XR chest portable] Stat Exams 06/17/21 00:47 Taken Drug Screen,Urine Stat Lab 06/17/21 00:41 Received - Radiology Data #1 Image(s): Chest Image Reviewed: Yes I reviewed the patient's radiology image Preliminary Findings: Abnormal (et tube in place ) - ECG Data Tracing #1 Normal Sinus Rhythm: No Arrhythmias present: afib Ischemic changes: non-specific ST-T wave changes - Physician Consults Physician Consulted: bernardo Zaragoza
[2021-06-17 01:29] VITALS: BP 144/71; PULSE 60; RESP 13; TEMP 36.8; O2SAT 100
--- NOTE | 2021-06-17 01:30 | PC.NURSE ---
EMS stated called and reported pt was sitting in chair when she became unresponsive and started shaking at 2345. EMS arrived and pt had urinated self and had right sided gaze. 5mg total of Versed IV given by EMS in route. #20g IV in left AC via EMS. EMS was going to fly pt from scene but nearest flight crew was 45min away and they could not get seizures under control so they rerouted here. I had called [employer] for a weather status for possible flight and [employer] said they would call back with weather check and flight availability 0027- Pt arrived on non-rebreather. Pulses present to femoral and carotid. Cap refill <3sec. FSBS of 299 0030- Pulse of 78. O2 95% on non-rebreather. GCS of 3. No posturing. Right pupil pinpoint and unresponsive to light. Left pupil sluggish response. Pt agonal breathing at this point and risk of losing airway. MD preparing to intubate. 0031- 16f edouard cath inserted. #18g IV inserted in left hand with blood drawn. 0032- Roby gives stat order for CBC and BMP 0035- Blood sent to lab. 0036- 8.0 ETT placed by and secured 20cm at the lip. Bilateral breath sounds auscultated and color change present on colormetric device. 0038- Manual BP 120/78 98.3 rectal temp HR 47 O2 96% BVM 0040- Xray taken. MD verbal order to pull ETT back 1inch to 19. 0041- [employer] arrived. 0042- MD on phone with [facility] MD's at this time. 0044- QR=740/64 HR=54 O2=98% BVM 0045- EKG performed 0054- 2mg Versed IV given per MD verbal order 0058-Pt accepted by to ED and he stated to defer CT head. 0102- 2gm Keppra IV bolus started at this time per MD verbal order. 0129- Pt leaving with [facility] at this time.
[2021-08-06 13:41] LABS: POC Glucose,Bedside 299 (70-110)
== END 2021-06-17 01:29 | disposition short-term general hospital (02) ==
PROVIDERS: Emergency Provider Emergency Medicine; PCP Internal Medicine
DX: I63.89 Other cerebral infarction (principal); E11.9 Type 2 diabetes mellitus without complications; I48.0 Paroxysmal atrial fibrillation; K21.9 Gastro-esophageal reflux disease without esophagitis; I10 Essential (primary) hypertension; E78.5 Hyperlipidemia, unspecified
CPT/HCPCS: 31500; 51702; 71045; 80048; 80305; 81001; 82803; 82962; 85025; 85610; 85730; 93005; 96374; 96375; 99284; J1953